=== PATIENT | male | born 1955 | race Caucasian/White ===

== ENCOUNTER 2018-09-05 10:05 | Emergency (ER) | payer OTHER, BC ==
[2018-09-05 10:49] LABS: BASO % 0.5 % (0.0-1.0); EOS # 0.1 10^3/uL (0.0-0.50); EOS % 1.3 % (0.0-3.0); HEMATOCRIT 46.2 % (42.0-52.0); HEMOGLOBIN 15.3 g/dl (13.5-17.5); IMMATURE GRANULOCYTE % 0.2 % (0-3.0); LYMPH # 1.8 10^3/uL (1.5-4.5); LYMPH % 28.6 % (24.0-44.0); MEAN CORPUSCULAR HEMOGLOBIN 31.3 pg (27.0-33.0); MEAN CORPUSCULAR HGB CONC 33.1 g/dl (32.0-36.5); MEAN CORPUSCULAR VOLUME 94.5 fl (80.0-96.0); MONO # 0.7 10^3/uL (0.0-0.8); MONO % 10.3 % (0.0-5.0); NEUTROPHILS # 3.7 10^3/uL (1.8-7.7); NEUTROPHILS % 59.1 % (36.0-66.0); PLATELET COUNT, AUTOMATED 265 10^3/uL (150-450); RED BLOOD COUNT 4.89 10^6/uL (4.30-6.10); RED CELL DISTRIBUTION WIDTH 12.4 % (11.5-14.5); WHITE BLOOD COUNT 6.3 10^3/uL (4.0-10.0)
[2018-09-05 11:27] LABS: ANION GAP 8 MEQ/L (8-16); BLOOD UREA NITROGEN 17 MG/DL (7-18); CALCIUM LEVEL 8.5 MG/DL (8.8-10.2); CARBON DIOXIDE LEVEL 30 MEQ/L (21-32); CHLORIDE LEVEL 108 MEQ/L (98-107); CREATININE FOR GFR 0.74 MG/DL (0.70-1.30); GLOMERULAR FILTRATION RATE > 60.0 (>49); GLUCOSE, FASTING 138 MG/DL (70-100); POTASSIUM SERUM 4.5 MEQ/L (3.5-5.1); SODIUM LEVEL 146 MEQ/L (136-145)
[2018-09-05 11:59] LABS: APPEARANCE, URINE CLEAR (CLEAR); BACTERIA, URINE AUTO 1+ (NEGATIVE); BILIRUBIN, URINE AUTO NEGATIVE (NEGATIVE); BLOOD, URINE BLOOD NEGATIVE (NEGATIVE); COLOR, URINE YELLOW (YELLOW); GLUCOSE, URINE (UA) AUTO NEGATIVE (NEGATIVE); KETONE, URINE AUTO NEGATIVE (NEGATIVE); LEUKOCYTE ESTERASE, URINE AUTO NEGATIVE (NEGATIVE); MUCUS, URINE SMALL (NEGATIVE); NITRITE, URINE AUTO NEGATIVE (NEGATIVE); PROTEIN, URINE AUTO NEGATIVE (NEGATIVE); RBC, URINE AUTO 1 /HPF (0-3); SPECIFIC GRAVITY URINE AUTO 1.019 (1.002-1.035); SQUAMOUS EPITHELIAL CELL UR AU 0 /HPF (0-6); UROBILINOGEN, URINE AUTO 0.2 mg/dL (0.0-2.0); WBC, URINE AUTO 0 /HPF (0-3)
== END 2018-09-05 12:53 | disposition home or self-care (01) ==
LOC: M ED 10:05
DX: S06.0X0A Concussion without loss of consciousness, initial encounter (principal); V09.9XXA Pedestrian injured in unspecified transport accident, initial encounter; Y92.410 Unspecified street and highway as the place of occurrence of the external cause; R03.0 Elevated blood-pressure reading, without diagnosis of hypertension
CPT/HCPCS: 71045

== ENCOUNTER → 2018-09-09 | Outpatient (CLI) | payer BC ==
[2018-09-09 13:02] LABS: BASO % 0.5 % (0.0-1.0); EOS # 0.1 10^3/uL (0.0-0.50); EOS % 1.2 % (0.0-3.0); HEMATOCRIT 48.2 % (42.0-52.0); HEMOGLOBIN 15.9 g/dl (13.5-17.5); IMMATURE GRANULOCYTE % 0.2 % (0-3.0); LYMPH % 31.5 % (24.0-44.0); MEAN CORPUSCULAR HEMOGLOBIN 31.2 pg (27.0-33.0); MEAN CORPUSCULAR VOLUME 94.5 fl (80.0-96.0); MONO # 0.6 10^3/uL (0.0-0.8); MONO % 9.7 % (0.0-5.0); NEUTROPHILS # 3.7 10^3/uL (1.8-7.7); NEUTROPHILS % 56.9 % (36.0-66.0); PLATELET COUNT, AUTOMATED 282 10^3/uL (150-450); RED CELL DISTRIBUTION WIDTH 12.5 % (11.5-14.5); WHITE BLOOD COUNT 6.4 10^3/uL (4.0-10.0)
[2018-09-09 13:27] LABS: ANION GAP 8 MEQ/L (8-16); BLOOD UREA NITROGEN 17 MG/DL (7-18); CALCIUM LEVEL 9.4 MG/DL (8.8-10.2); CARBON DIOXIDE LEVEL 30 MEQ/L (21-32); CHLORIDE LEVEL 104 MEQ/L (98-107); CHOLESTEROL LEVEL 244 MG/DL (<200); CREATININE FOR GFR 0.96 MG/DL (0.70-1.30); GLOMERULAR FILTRATION RATE > 60.0 (>49); GLUCOSE, FASTING 121 MG/DL (70-100); HDL CHOLESTEROL 40 MG/DL (>40); LDL CHOLESTEROL 163 MG/DL (<100); NON-HDL-C 204 MG/DL; POTASSIUM SERUM 4.7 MEQ/L (3.5-5.1); PSA SCREENING 1.82 NG/ML (< 4.0); SODIUM LEVEL 142 MEQ/L (136-145); TRIGLYCERIDES LEVEL 206 MG/DL (<150)
== END ==
LOC: M LAB 12:07
DX: Z12.5 Encounter for screening for malignant neoplasm of prostate (principal); I10 Essential (primary) hypertension
CPT/HCPCS: 84443

== ENCOUNTER → 2018-09-10 | Outpatient (CLI) | payer BC | LOC: M LAB 09:25 | DX: R94.6 Abnormal results of thyroid function studies (principal) | CPT/HCPCS: 84443 ==

== ENCOUNTER → 2018-10-09 | Outpatient (CLI) | payer BC ==
[2018-10-09 11:19] LABS: ANION GAP 6 MEQ/L (8-16); BLOOD UREA NITROGEN 20 MG/DL (7-18); CARBON DIOXIDE LEVEL 31 MEQ/L (21-32); CHLORIDE LEVEL 105 MEQ/L (98-107); CREATININE FOR GFR 1.03 MG/DL (0.70-1.30); GLOMERULAR FILTRATION RATE > 60.0 (>49); GLUCOSE, FASTING 122 MG/DL (70-100); POTASSIUM SERUM 4.6 MEQ/L (3.5-5.1); SODIUM LEVEL 142 MEQ/L (136-145)
[2018-10-09 12:10] LABS: HEPATITIS C VIRUS ABY INDEX 0.1 INDEX (<0.8)
== END ==
LOC: M LAB 09:58
DX: I10 Essential (primary) hypertension (principal); Z11.59 Encounter for screening for other viral diseases
CPT/HCPCS: 86803

== ENCOUNTER 2018-10-20 07:08 | Outpatient (RCR) | payer OTHER ==
[~2018-10-20 07:08] MED LIST: ASPI1TAB PO; METF-414 PO; NEUR100C OR; VICO5TAB OR; VITAMIN D 1.25 MG PO; ZOCO20TA PO; calcium PO; gabapentin PO
== END 2018-11-02 ==
LOC: M OT 07:08
PROVIDERS: ATTEND Physician Assistant
DX: S06.0X0D Concussion without loss of consciousness, subsequent encounter (principal); X58.XXXD Exposure to other specified factors, subsequent encounter; Y92.89 Other specified places as the place of occurrence of the external cause; G44.319 Acute post-traumatic headache, not intractable; H53.9 Unspecified visual disturbance; R41.89 Other symptoms and signs involving cognitive functions and awareness; R46.89 Other symptoms and signs involving appearance and behavior

== ENCOUNTER → 2018-12-14 | Outpatient (CLI) | payer BC ==
[2018-12-14 09:40] LABS: HEMOGLOBIN A1c 7.4 %
[2018-12-14 09:50] LABS: CALCIUM LEVEL 8.9 MG/DL (8.8-10.2); CREATININE FOR GFR 1.36 MG/DL (0.70-1.30); FREE T4 0.75 NG/DL (0.76-1.46); GLOMERULAR FILTRATION RATE 56.3 (>49); POTASSIUM SERUM 4.6 MEQ/L (3.5-5.1); THYROID STIMULATING HORMONE 6.3 uIU/ML (0.358-3.740)
== END ==
LOC: M LAB 08:37
PROVIDERS: ATTEND Physician Assistant
DX: I10 Essential (primary) hypertension (principal); R73.01 Impaired fasting glucose

== ENCOUNTER 2019-01-01 10:59 | Day surgery (SDC) | payer BC ==
[~2019-01-01] VITALS: Ht 172.7 cm; Wt 98.9 kg
[~2019-01-01 10:59] MED LIST changes: +AMIT10TA PO; +LEVO25TA5 PO; +LISI40TA PO; +LR 1,000 ML IV ONE; +MELA5SUB SL; +ROSU5TAB4; +ZOLO25TA PO
[2019-01-01] MEDS ORDERED: LIDOCAINE 2% INJ 100 MG/5 ML SDV (FOR ANES.) As Ordered ONE (12:05)
[2019-01-01] MEDS ORDERED: PROPOFOL 200 MG/20 ML VIAL As Ordered ONE ×3 (12:05→15:48)
[2019-01-01] MEDS ORDERED: ONDANSETRON 4MG/2ML VIAL (J2405) As Ordered ONE (12:06)
[2019-01-01] MEDS ORDERED: dexameTHASONE 4 MG/ML 1ML VIAL (J1100) As Ordered ONE (12:06)
[2019-01-01] MEDS ORDERED: fentaNYL 100 MCG/2 ML INJECTION (J3010) As Ordered ONE (12:12)
[2019-01-01] MEDS ORDERED: MIDAZOLAM INJ 2 MG/2 ML VIAL (J2250) As Ordered ONE (12:12)
[2019-01-01] MEDS ORDERED: BUPIVACAINE LIPOSOME/PF 1.3% 20ML VIAL (13.3MG/ML)(EXPAREL)(C9290 PER1MG) As Ordered ONE (14:35)
[2019-01-01] MEDS ORDERED: LIDOCAINE 1% SDV INJ 30 ML VIAL As Ordered ONE (15:14)
[2019-01-01] MEDS ORDERED: BUPIVACAINE HCL 0.25% 30 ML VIAL As Ordered ONE (15:14)
[2019-01-01] MEDS ORDERED: ePHEDrine SULFATE 25 MG/5 ML(5MG/ML) SYRINGE As Ordered ONE (15:36)
[2019-01-01] MEDS ORDERED: PHENYLephrine HCL 500 MCG/5 ML (100MCG/ML) SYRINGE (J2370) As Ordered ONE (15:36)
[2019-01-01] MEDS ORDERED: PERCOCET 5MG/325MG TAB PO PRN (16:30)
[2019-01-01] MEDS ORDERED: ONDANSETRON 4MG/2ML VIAL (J2405) IV PRN ×3 (16:30→17:15)
[2019-01-01] MEDS ORDERED: LR 1,000 ML IV SCH (16:30)
[2019-01-01] MEDS ORDERED: fentaNYL 100 MCG/2 ML INJECTION (J3010) IV PRN (16:30)
[2019-01-01] MEDS ORDERED: KETOROLAC 30 MG/ML VIAL (J1885) As Ordered ONE (17:09)
[2019-01-01] MEDS ORDERED: KETOROLAC 30 MG/ML VIAL (J1885) IV PRN (17:15)
[2019-01-01] MEDS ORDERED: NORCO, ANEXSIA 5/325MG TABLET (HYDROcodone/ACETAMINOPHEN) PO PRN ×2 (17:15)
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
[2019-01-01 20:59] VITALS: BP 131/73
== END 2019-01-01 20:59 | disposition home or self-care (01) ==
LOC: M SDC 10:59
PROVIDERS: ATTEND Surgery
DX: L05.91 Pilonidal cyst without abscess (principal); I10 Essential (primary) hypertension; E03.9 Hypothyroidism, unspecified; E11.9 Type 2 diabetes mellitus without complications; E78.00 Pure hypercholesterolemia, unspecified; F41.9 Anxiety disorder, unspecified; F32.9 Major depressive disorder, single episode, unspecified; Z85.068 Personal history of other malignant neoplasm of small intestine; Z79.899 Other long term (current) drug therapy
CPT/HCPCS: 11770; 88304; C9290; J0690; J1100; J1885; J2250; J2370; J2405; J3010

== ENCOUNTER → 2019-02-11 | Outpatient (CLI) | payer BC ==
[~2019-02-11] MED LIST changes: -ASPI1TAB PO; +ASPI81TA26 PO; -LR 1,000 ML IV ONE
[2019-02-11 10:20] LABS: FREE T4 0.96 NG/DL (0.76-1.46); THYROID STIMULATING HORMONE 3.8 uIU/ML (0.358-3.740)
== END ==
LOC: M LAB 09:17
PROVIDERS: ATTEND Physician Assistant
DX: E03.9 Hypothyroidism, unspecified (principal)

== ENCOUNTER → 2019-02-16 | Outpatient (CLI) | payer BC ==
[2019-02-16 08:17] LABS: HEMOGLOBIN A1c 7.2 %
[2019-02-16 08:27] LABS: ALBUMIN 3.7 GM/DL (3.2-5.2); ALT/SGPT 25 U/L (12-78); BILIRUBIN,TOTAL 0.7 MG/DL (0.2-1.0); BLOOD UREA NITROGEN 16 MG/DL (7-18); CALCIUM LEVEL 8.9 MG/DL (8.8-10.2); CARBON DIOXIDE LEVEL 33 MEQ/L (21-32); CHLORIDE LEVEL 105 MEQ/L (98-107); CHOLESTEROL LEVEL 191 MG/DL (<200); CHOLESTEROL RISK RATIO 4.441 (<5); FREE T4 0.95 NG/DL (0.76-1.46); GLOMERULAR FILTRATION RATE > 60.0 (>49); GLUCOSE, FASTING 127 MG/DL (70-100); HDL CHOLESTEROL 43 MG/DL (>40); LDL CHOLESTEROL 98 MG/DL (<100); NON-HDL-C 148 MG/DL; POTASSIUM SERUM 4.4 MEQ/L (3.5-5.1); SODIUM LEVEL 142 MEQ/L (136-145); TOTAL PROTEIN 6.9 GM/DL (6.4-8.2); TRIGLYCERIDES LEVEL 251 MG/DL (<150)
[2019-02-16 12:27] LABS: MALB URINE SIEMENS 14.6 MG/L; MAU/CREAT RATIO 8.4 MCG/MG (0.0-30.0)
== END ==
LOC: M LAB 06:47
PROVIDERS: ATTEND Physician Assistant
DX: R73.01 Impaired fasting glucose (principal)

== ENCOUNTER → 2020-12-16 | Outpatient (CLI) | payer BC ==
[~2020-12-16] MED LIST changes: +D31000TA2 PO; +DOXA2TAB3 PO; -LISI40TA PO; +LISI40TA4 PO; +LOPI600T; +METF-838; -ROSU5TAB4; +ROSU5TAB5
== END ==
LOC: M LABSMTC 08:55
PROVIDERS: ATTEND Anesthesiology
DX: Z01.812 Encounter for preprocedural laboratory examination (principal); Z20.822 Contact with and (suspected) exposure to COVID-19

== ENCOUNTER 2020-12-21 07:01 | Day surgery (SDC) | payer MEDICARE ==
[~2020-12-21] VITALS: Ht 170.2 cm; Wt 102.7 kg
[~2020-12-21 07:01] MED LIST changes: +BSS IRR 500ML/OMIDRIA 4ML IRR BAG (OR ONLY) As Ordered ONE; +CEFUROXIME 1MG/0.1ML INTRACAMERAL INJ As Ordered ONE; +DUOVISC (0.50ML VISCOAT/0.55ML PROVISC) OPHTH KIT As Ordered ONE; +OFLOXACIN 0.3 % (OCUFLOX) OPTH SOL 5ML OS ONE; +PHENYLEPHRINE 2.5% OPHTH SOL 2ML OS ONE; +POVIDONE-IODINE 5% OPHTH PREP SOL 30ML As Ordered ONE; +PROPARACAINE 0.5% OPHTH SOL 15ML OS ONE; +TROPICAMIDE 1% OPHTH SOLN 2ML OS ONE
--- OUTSIDE RECORDS SUMMARY | 2020-12-21 07:06 | CCD | Continuity of Care Document ---
Author Author [facility] Organization Unknown Address [address] [place] [address] Phone [phone] Care Team Providers Care Station Cook Name Role Phone Tonia Cao AUTM [phone] Problems Active Problems Provider Date Pure hypercholesterolemia Ari Coello MD Onset: 019 Essential hypertension Ari Coello MD Onset: 04/27/2019 Type II diabetes mellitus uncontrolled ANTONIA Piña P [employer] ARCHITECT Onset: 06/20/2020 Hypothyroidism ANTONIA Piña PNP Onset: 0 Pure hyperglyceridemia ANTONIA Piña, RIP Onset: 2019 Moderate recurrent major depression ANTONIA Piña PNP Onset: 06/20/2020 Anxiety state ANTONIA Piña PNP Onset: 0 Taking medication ANTONIA Piña PNP Onset: 0 Pilonidal cyst without abscess ANTONIA Piña PNP Onset : 06/20/2020 Family history of prostate cancer [facility] Onset: 06/20/2020 Pilonidal cyst with abscess Ari Coello MD Onset: 06/20 History of polyp of colon ANTONIA Piña PNP Onset: Insomnia ANTONIA Piña PNP Onset: 0 Social History Type Date Description Comments Sex Unknown Tobacco Use Start: Unknown Never Smoked Cigarettes Tobacco Use Start: Unknown Never Smoked Cigars Tobacco Use Start: Unknown Never Smoked A Pipe Smoking Status Reviewed: 10/03/20 Never Smoked A Pipe Tobacco Use Start: Unknown Never Used Smokeless Tobacco ETOH Use Currently consumes alcohol 1-2 t imes a week Tobacco Use Start: Unknown Patient has never smoked Recreational Drug Use Denies Drug Use Allergies, Adverse Reactions, Alerts Active Allergies Reaction Severity Comments Date NKDA 03/24/2019 [employer]KE[employer] 04/27/2019 NKFA 04/27/2019 Medications Active Medications SIG Qnty Indications Ordering Provide r Date Doxazosin Mesylate 2mg Tablets take 1 tablet by mouth every am for blood pressure 90tabs ANTONIA Piña, PNP 06/20/2020 Metformin HCL ER 500mg Tablets ER 24HR 1 by mouth twice a day 180tabs E11.65 ANTONIA Piña, PNP Cpap Mask And Supplies Please set patient up with n otoniel mask of his choice and chin strap to use with Auto cpap every night dx: g47.33 1units G47. 33 ANTONIA Piña, PNP 12/22/2019 Levothyroxine Sodium 88mcg Tablets take 1 tablet by mouth every day 90tabs ANTONIA Piña, PN P 12/22/2019 Gemfibrozil 600mg Tablets take 1 tablet by mouth daily 90tabs E78.1 ANOTNIA Piña, PNP 12/22/19 20 Auto Cpap set up 5-20cm, mask of patie nt's choice, heated humidifier and necessary supplies dx: g47.33 (marras) 1units ANTONIA Norman, PNP 06/01/2019 Rosuvastatin Calcium 5mg Tablets 1 by mouth every day 90tabs ANTONIA Piña, PNP 00 Systane 0.4-0.3% Solution 1 drop right eye twice a day Unknown Immunizations CPT Code Status Date Vaccine Lot # [id number] Given 08/10/2020 Influenza (>= 6 Months) P.F. Vaccine [id number] Vital Signs Date Vital Result Comment 09/25/2020 9:29am BP Systolic 112 mmHg BP Diastolic 68 mmHg Heart Rate 78 /min Body Temperature 96.6 F Respiratory Rate 18 /min O2 % BldC Oximetry 96 % Weight 217.38 lb Weight 98.601 kg Height 67 inches 5'7" BMI (Body Mass Index) 34.0 kg/m2 BSA (Body Surface Area) 2.10 m2 08/10/2020 10:20am Height 67 inches 5'7" Results Test Acquired Date Facility Test Result H/L Range Note Laboratory test finding 12/18/2020 [facility] TSH Highly Sensitive <pending> Hgba1c <pending> Magnesium Serum <pending> Vitamin D (25-Hydroxy) <pending> CBC W/Automated Diff 09/20/2020 [facility] CBC W/Automated Diff (SEE NOTE) 1, 2 WBC 6.0 10^3/uL 4.2 - 11.0 RBC 5.16 10^6/uL 4.50 - 6.30 Hemoglobin 15.9 g/dL 14.0 - 16.0 Hematocrit 48.6 % 41.0 - 51.0 MCV 94.2 fL High 80.0 - 94.0 MCH 30.8 pg 27.0 - 34.0 MCHC 32.7 g/dL 31.0 - 36.0 RDW 12.1 % 11.5 - 14.8 Platelets 272 10^3/uL 150 - 450 MPV 10.2 fL 7.4 - 10.4 Neut 49.1 % 37.0 - 80.0 Lymph 37.0 % 25.0 - 40.0 [place] 10.3 % High 3.0 - 8.0 Eos 2.5 % 0.0 - 7.0 Baso 0.8 % 0.0 - 2.0 %Ig 0.3 % High 0.0 - 0.0 %NRBC 0.0 % 0.0 - 0.0 #Neut 2.96 10^3/uL 2.00 - 6.90 #Lymph 2.23 10^3/uL 0.60 - 3.40 #[place] 0.62 10^3/uL 0.00 - 0.90 #Eos 0.15 10^3/uL 0.00 - 0.70 #Baso 0.05 10^3/uL 0.00 - 0.20 #Ig 0.02 10^3/uL 0.00 - 0.10 #NRBC 0.00 10^3/uL 0.00 - 0.00 Manual Diff NOT INDICATED RBC Morph NOT INDICATED Comprehensive Metabolic Panel 09/20/2020 [facility] Comprehensive Metabo (SEE NOTE) 3 Sodium 142 mEq/L 134 - 153 Potassium 4.5 mEq/L 3.6 - 5.0 Chloride 104 mEq/L 98 - 107 Co2 32 mEq/L High 22 - 30 Glucose 129 mg/dL High 65 - 110 BUN 15 mg/dL 7 - 21 Creatinine 1.1 mg/dL 0.7 - 1.5 BUN/Creat 14 8 - 27 Total Protein 6.6 g/dL 6.3 - 8.2 Albumin 4.4 g/dL 3.9 - 5.0 Globulin 2.2 GM/DL Low 2.4 - 3.2 A/G Ratio 2.0 0.8 - 2.0 Calcium 9.8 mg/dL 8.4 - 10.2 Total Bili <0.7 mg/dL 0.2 - 1.3 Alkaline Phos 56 U/L 38 - 126 Sgot/Ast 17 U/L 5 - 40 SGPT/Alt 17 U/L 7 - 56 Anion Gap 6.0 mmol/L Low 8.0 - 16.0 Age 65 yrs Non-Aa GFR >60 mL/min Afr Amer GFR >60 mL/min 4 Cve Panel 09/20/2020 [facility] Cve Panel (SEE NOTE) 5 Cholesterol 175 mg/dL 131 - 200 Triglycerides 176 mg/dL High 35 - 160 HDL 41 mg/dL 29 - 86 LDL 103 mg/dL 65 - 175 Risk Factor 4.3 3.4 - 4.9 LDL/HDL 2.51 1.00 - 3.55 6 Laboratory test finding 09/20/2020 [facility] TSH Highly Sensitive 0.77 uIU/mL 0.47 - 5.01 Hgba1c 7.2 % High 4.4 - 6.1 7 Magnesium Serum 1.8 mg/dL 1.7 - 2.2 Laboratory test finding 09/20/2020 [facility] Vitamin D (25-Hydroxy) 35 NG/ML 8 PSA - Diagnostic 2.33 ng/mL 0.00 - 4.00 9 Laboratory test finding 07/21/2020 [facility] BUN 17 mg/dL 7 - 21 Creatinine Serum 07/21/2020 [facility] Creatinine 1.1 mg/dL 0.7 - 1.5 Age 65 yrs Non-Aa GFR >60 mL/min Afr Amer GFR >60 mL/min 10 1 Is patient fasting? Y 2 COMPLETE BLOOD COUNT 3 COMPREHENSIVE METABOLIC PANE L 4 Male GFR Interprentation 20-49 yrs >60 mL/min Normal 50-59 yrs >56 mL/min Normal 60-69 yrs >49 mL/min Normal 70-79yrs >42 mL/min Normal 80 and above >35 mL/min Normal Female GFR Interpretation 20-39 yrs >60 mL/min Normal 40-49 yrs >58 mL/min Normal 50-59 yrs >51 mL/min Normal 60-69 yrs >45 mL/min Normal 70-79 yrs >39 mL/min Normal 80 and above >32 mL/min Normal 5 LIPID PANEL 6 CVE RISK CHOL/HDL LDL/HDL MEN: 1/2 AVERAGE 3.43 1.00 AVERAGE 4.97 3.55 2X AVERAGE 9.55 6.25 3X AVERAGE 23.99 7.99 WOMEN: 1/2 AVERAGE 3.27 1.47 AVERAGE 4.44 3.22 2X AVERAGE 7.05 5.03 3X AVERAGE 11.04 6.14 7 {A1] {HB] 8 VITAMIN-D(25HYDROXY) Deficiency: <=20 ng/ml Insufficiency: 21-29 ng/ml Preferred level: => 30 ng/ml 9 \\BLDo\\PSA INTERPRETATION\\BLD x\\ The PSA assay should not be used alone for a screening test or diagnosis for presence or absence of malignant disease. Predictions of disease recurrence should not be based solely on values obtained from serial patient serum values. The PSA result was determined by "[employer]", on the Joel GIUSEPPE 6000. Values obtained with different assay methods or kits cannot be used interchangeably. 10 Male GFR Interprentation 20-49 yrs >60 mL/min Normal 50-59 yrs >56 mL/min Normal 60-69 yrs >49 mL/min Normal 70-79yrs >42 mL/min Normal 80 and above >35 mL/min Normal Female GFR Interpretation 20-39 yrs >60 mL/min Normal 40-49 yrs >58 mL/min Normal 50-59 yrs >51 mL/min Normal 60-69 yrs >45 mL/min Normal 70-79 yrs >39 mL/min Normal 80 and above >32 mL/min Normal Procedures Date Code Description Status 09/25/2020 00025 Admin Patient Focused Health Ris k Assessment Instrument Completed 06/20/2020 62043 Brief Emotional/Beha v Assessment W/ Scoring Doc Per Standard Inst Completed Medical Devices Description No Information Available Encounters Description No Information Available Assessments Date Code Description Provider 12/18/2020 E11.65 Type 2 diabetes mellitus with hy perglycemia [facility] 12/18/2020 E03.9 Hypothyroidism, unspecified [facility] 12/18/2020 Z79.899 Other bed bug exterminator (current) drug t herapy [facility] 12/18/2020 E78.1 Pure hyperglyceridemia [facility] 12/18/2020 R79.89 Other specified abnormal finding s of blood chemistry [facility] 10/03/2020 E11.42 Type 2 diabetes mellitus with di abetic polyneuropathy Miki Bagley DPM 09/25/2020 Z00.01 Encounter for jose l adult medical examination with abnormal findings ANTONIA Piña, PNP 09/25/2020 R20.1 Hypoesthesia of skin ANTONIA Piña, PNP 09/25/2020 H26.9 Unspecified cataract ANTONIA Piña, PNP 09/25/2020 E11.65 Type 2 diabetes mellitus with hy perglycemia TERRELL Piña, PNP 09/25/2020 E78.1 Pure hyperglyceridemia Tonia williamson, ANTONIA, PNP 09/25/2020 I10 Essential (primary) hypertension ANTONIA Piña, PNP 09/25/2020 E03.9 Hypothyroidism, unspecified ANTONIA Piña, PNP 09/25/2020 E66.01 Morbid (severe) obesity due to e xcess calories ANTONIA Piña, PNP 09/25/2020 E55.9 Vitamin D deficiency, unspecifie d ANTONIA Piña, PNP 09/25/2020 Z79.899 Other prison (current) drug t herapy ANTONIA Piña, PNP 09/25/2020 Z68.34 Body mass index [BMI] 34.0-34.9, adult ANTONIA Piña, PNP 09/20/2020 E11.65 Type 2 diabetes mellitus with hy perglycemia [facility] 09/20/2020 E03.9 [facility], [facility] 09/20/2020 Z79.899 Other prison (current) drug t herapy [facility] 09/20/2020 E78.1 Pure hyperglyceridemia [place] 09/20/2020 Z80.42 Family history of malignant neop lasm of prostate [facility] 09/20/2020 R79.89 Other specified abnormal finding s of blood chemistry [facility] 07/21/2020 E11.65 Type 2 diabetes mellitus with hy perglycemia [facility] 07/21/2020 R79.89 Other specified abnormal finding s of blood chemistry [facility] 06/20/2020 E11.65 Type 2 diabetes mellitus with hy perglycemia TERRELL Piña, PNP 06/20/2020 E03.9 Hypothyroidism, unspecified ANTONIA Piña, PNP 06/20/2020 I10 Essential (primary) hypertension ANTONIA Piña, PNP 06/20/2020 E78.1 Pure hyperglyceridemia ANTONIA Norman, PNP 06/20/2020 R79.89 Other specified abnormal finding s of blood chemistry ANTONIA Piña, PNP 06/20/2020 E66.01 Morbid (severe) obesity due to e xcess calories ANTONIA Piña, RIP 06/20/2020 Z68.33 Body mass index (BMI) 33.0-33.9, adult ANTONIA Piña, RIP 06/20/2020 Z79.899 Other bed bug exterminator (current) drug t herapy ANTONIA Piña, RIP Plan of Treatment Future Appointment(s):* 12/27/2020 8:00 am - ANTONIA Piña PNP at [facility] 10/03/2020 - Miki Bagley DPM* E11.42 Type 2 diabetes mellitus with diabetic polyneuropathy* Follow up:* Patient was advised to follow up yearly to monitor for progression of his symptoms but may follow up more frequently for routine nail care if he desires it. * Recommendations:* 1. The patient was seen and evaluated. 2. He has numbness primarily in the distal and plantar aspect of his toe to the ball of his foot. No findings on exam concerning for impingement. He denies any chronic lower back problems or alcohol abuse. He does have diabetes and has hypothyroidism. Most likely cause of his numbness is diabetes. I educated him on the importance of daily foot exams and visually inspecting his toes for ingrown and pressure areas and foreign bodies. We discussed that because of the numbness in his toes, we can began doing regular nail care. He will think about this but does not need this today. We also discussed the possibility of diabetic shoes and he is not interested in it at this time. We discussed the importance of proper fitting shoe gear. He was advised to follow up yearly to monitor for progression of his symptoms but may follow up more frequently for routine nail care if he desires it. 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 He is requesting referral to your office for evaluation. Sent [phone] [address] [phone] Estephania Goel, CEDRICK pc Please see this 65 yo man wh o c/o numbness feet. He also needs diabetic foot exam. He has Hx Type 2 DM, last A1C 09/2020 was 7.2 Closed 10/03/[address] [place] [id number] [phone]
--- OUTSIDE RECORDS SUMMARY | 2020-12-21 07:06 | CCD | Summary of Care ---
Author Author [facility] Organization [facility] Address Unknown Phone Unavailable Care Team Providers Care Pillowcase Cleaner Name Role Phone Tonia Cao PRINTER SLOTTER FEEDER PCP Reason for Referral * Physical Therapy (Routine) Referred By Contact Referred To Contact Status Reason Specialty Diagnoses / Procedures Jeff Conley MD [address] [place] [address] Email: [email or web address] Diagnoses Right rotator cuff tear arthropathy P rocedures Physical Therapy Reason for Visit * Reason Comments New Patient Right shoulder pain Encounter Details Care Team Description Date Type Department Jeff Conley MD [address] [place] [phone] Right rotator cuff tear arthropathy (aKrlee bharathi Dx) 10/19/2020 Office Visit [email or web address] Orthopedics , [facility] [address] [place] [address] [place] [phone] Allergies No Known Allergiesdocumented as of this encounter (statuses as of 10/19/2020) Medications End Date Status Medication Sig Dispensed Refills Start Date Active rosuvastatin (CRESTOR) 5 Take by mouth 2 10/12 MG tablet daily 8 Active Levothyroxine Sodium 88 Take by mouth 0 MCG Oral Tablet daily 0 (SYNTHROID) Active metFORMIN HCl ER 500 MG TK 1 T PO BID 0 Oral Tablet Extended 0 Release 24 Hour (GLUCOPHAGE-XR) Active Ibuprofen 600 MG Oral Take 600 mg 0 10/11/20 2 Tablet (MOTRIN) by mouth 0 every 8 (eight) hours as needed Active Gemfibrozil 600 MG Oral Take 600 mg 0 Tablet (LOPID) by mouth 0 daily Active Doxazosin Mesylate 2 MG TK 1 T PO QD 0 Oral Tablet (CARDURA) FOR BLOOD 0 PRESSURE 10/19/2020 Discontinued lisinopril TK 1 T PO 1 (PRINIVIL,ZESTRIL) 40 MG ONCE A DAY. 8 tablet 10/19/2020 Discontinued Melatonin 5 MG CAPS Take 5 mg by 0 mouth daily 10/19/2020 Discontinued amitriptyline (ELAVIL) 10 TAKE 1 TABLET 30 tablet 4 MG tablet BY MOUTH 9 EVERY NIGHT 10/19/2020 Discontinued levothyroxine (SYNTHROID, Take 50 mcg 0 LEVOTHROID) 50 MCG tablet by mouth Daily 10/19/2020 Discontinued Njpqmhtvqar-Cafstjcr-Xwlv Apply 1 % to 0 fenac 1-0.5-0.075 % SOLN eye Four times daily 10/19/2020 Discontinued gentamicin (GARAMYCIN) Place 1 drop 0 0.3 % ophthalmic solution into both eyes every 4 (four) hours 10/19/2020 Discontinued sertraline (ZOLOFT) 50 MG 0 tablet 9 documented as of this encounter (statuses as of 10/19/2020) Active Problems Problem Noted Date Primary osteoarthritis of left knee 01/04/2019 Right sided weakness 01/04/2019 documented as of this encounter (statuses as of 10/19/2020) Social History Date Tobacco Use Types Packs/Day Years Used Never Smoker Smokeless Tobacco: Never Used Drinks/Week oz/Week Comments Alcohol Use Yes Sex Assigned at Date Recorded Not on file Date Recorded COVID-19 Exposure Response 10/19/2020 12:53 PM EST In the last month, have you been in contact with No / Unsure someone who was confirmed or suspected to have Coronavirus / COVID-19? documented as of this encounter Last Filed Vital Signs Reading Time Taken Comments Vital Sign - - Blood Pressure - - Pulse 36 C (96.8 F) 10/19/2020 1:39 PM EST Temperature - - Respiratory Rate - - Oxygen Saturation - - Inhaled Oxygen Concentration 97.5 kg (215 lb) 10/19/2020 1:39 PM EST Weight 172.7 cm (5' 8") 10/19/2020 1:39 PM EST Height 32.69 10/19/2020 1:39 PM EST Body Mass Index documented in this encounter Progress Notes * Jeff Conley MD - 10/19/2020 1:00 PM EST CC: Right shoulder pain History: Adrián Coombs is a 65 y.o. patient who presents for evaluation of right shoulder pain has been going on for 10 to 15 years. He had no new injury. Arou nd that time he said he was diagnosed with a "detached tendon ". He said he was told he should have shoulder replacement surgery however he did not want to go forward with that at the time. He has been self treating himself throughout the time since this. He been takin g ibuprofen and modifying his activities to help with the pain. Overhead liftin g or any type of heavy lifting increases pain and he is try to avoid this. He h as not done any formal physical therapy for this however. He is right-hand dominant and retired. He does not do anything athletic but he does garden significant amount. He has hypertension hyperlipidemia and diabetes for which he takes Metformin for. His last A1c was 7.2. He lives up near [place]. Past Medical History: Please see Medical History Form - reviewed and scanned in to system. Past Medical History: Diagnosis Date Cancer 2010 Colon cancer Hyperlipidemia Hypertension Low back pain Current Outpatient Medications: amitriptyline (ELAVIL) 10 MG tablet, TAKE 1 TABLET BY MOUTH EVERY NIGHT, Disp: 30 tablet, Rfl: 4 gentamicin (GARAMYCIN) 0.3 % ophthalmic solution, Place 1 drop into both eyes every 4 (four) hours, Disp: , Rfl: levothyroxine (SYNTHROID, LEVOTHROID) 50 MCG tablet, Take 50 mcg by mout h Daily, Disp: , Rfl: lisinopril (PRINIVIL,ZESTRIL) 40 MG tablet, TK 1 T PO ONCE A DAY., Disp: , Rfl: 1 Melatonin 5 MG CAPS, Take 5 mg by mouth daily, Disp: , Rfl: Avchavcrmcg-Rildyfpj-Etygabmsb 1-0.5-0.075 % SOLN, Apply 1 % to eye Four times daily, Disp: , Rfl: rosuvastatin (CRESTOR) 5 MG tablet, Take by mouth daily, Disp: , Rfl: 2 sertraline (ZOLOFT) 50 MG tablet, , Disp: , Rfl: Patient's currently listed allergies are: Patient has no known allergies. Past Surgical History: Please see Medical History Form - reviewed and scanned i nto system. Past Surgical History: Procedure Laterality Date COLECTOMY/COLON RESECTION CYST REMOVAL TONSILLECTOMY TUMOR EXCISION Review of Systems: Comprehensive review of systems completed by patient and revi ewed by me and scanned into the system. Negative for chest pain, shortness of b reath, nausea and vomiting. Pertinent positive findings include nothing other th an mentioned in the HPI/PMH. Physical exam: Patient is alert & oriented times three, in no significant distress. Mood is appropriate. Well developed. Demonstrates good judgement and insight. Normocephalic, atraumatic. Extraocular movements in tact. Mucous Membranes moist. Non labored respirations. Skin is intact and supple throughout. Grossly normal sensation throughout. Vitals: 10/19/20 1339 Temp: 36 C (96.8 F) Right- shoulder: Inspection: skin intact, cool/dry, no lesions Otherwise, no gross deformity or other sign of trauma Scar(s): - Wound(s): - Swelling/Mass: - Palpation: AC Joint: - LHBT: - Corocoid: - Scap spine: - Trapezius: - Clavicle: - ROM (Active/Passive): R L Abd: 170/170 170/170 FF: 170/170 170/170 ER: 40/40 60/60 IR: T10 T10 Strength: R / pain L / pain Abd: 4+ 5 FF: 5 5 ER: 4+/+ 5 Bellypress: 5 5 -Spurling No pain with neck range of motion + velasquez impingement - empty can - periscapular atrophy - Yergesons - Graff's Able to flex/ext/abd/add all digits Sensation to light touch present / symmetric bilateral C5-T1 +axillary nerve sensation lateral shoulder 2+ radial pulse, temperature warm, refill normal Radiographs: X-rays taken today show slightly high riding humeral head with cruz ohumeral and acromioclavicular degenerative change Assessment/Plan: Patient is a 65 y.o. male with likely right rotator cuff tear a rthropathy We discussed conservative treatment today including continue with nonsteroidal a nti-inflammatories as needed, activity modifications and physical therapy. He i s going to go forward with all of those. Physical therapy will focus on deltoid strengthening and writing shoulder unit exercises. We discussed corticosteroid injection could also be an option down the road. He understands this these are unsuccessful the next thing I would like to do wou ld be to get an MRI of his shoulder to assess the extent of his rotator cuff inj ury. Based on his history he had a significant rotator cuff tear for at least 1 0 to 15 years and was recommended to have reverse shoulder replacement at that t bernice. It is unlikely but I would recommend anything different. Follow Up and xrays: As needed No orders of the defined types were placed in this encounter. At the conclusion of the encounter, questions were answered to satisfaction. Th e treatment plan was reviewed, including prognosis. The patient was comfortable with the plan. cc: Tonia Cao, PRINTER SLOTTER FEEDER This document was dictated using [employer] Speaking Software. A reasonab le attempt at proof reading has been made to minimize errors. Please call our o ffice if you have any questions. Thank you. documented in this encounter Plan of Treatment Health Maintenance Due Date Last Done Comments Hepatitis C Screening (B. 1955 [id number]) MMR Vaccines (1 of - [birth year]04/1956 Standard series) Varicella Vaccines (1 of 02/04/1956 2 - 2-dose childhood series) DTaP,Tdap,and Td Vaccines 1962 (1 - Tdap) Colon Cancer Screening 10 2005 yrs Zoster Vaccines (1 of 2) 2005 Pneumococcal Vaccine: 65+ 02/04/2020 Years (1 of 1 - PPSV23) Influenza Vaccine 08/03/2020 HIB Vaccines Aged Out No longer eligible based on patient's age to complete this topic Hepatitis A Vaccines Aged Out No longer eligibl e based on patient's age to complete this topic Hepatitis B Vaccines Aged Out No longer eligibl e based on patient's age to complete this topic IPV Vaccines Aged Out No longer eligible based on patient's age to complete this topic Pneumococcal Vaccine: Aged Out No longer eligib le based on patient's age to Pediatrics (0 to 5 Years) complete this topic and At-Risk Patients (6 to 64 Years) documented as of this encounter Results Not on filedocumented in this encounter Visit Diagnoses Diagnosis Right rotator cuff tear arthropathy - P rimary documented in this encounter
--- OUTSIDE RECORDS SUMMARY | 2020-12-21 07:07 | CCD ---
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 Onset: 06/20/2020 Hypothyroidism ANTONIA Piña PNP Onset: 0 Pure hyperglyceridemia ANTONIA Piña, PNP Onset: 2019 Moderate recurrent major depression ANTONIA Piña, PNP Onset: 06/20/2020 Anxiety state ANTONIA Piña, PNP Onset: 0 Taking medication ANTONIA Piña PNP Onset: 0 Pilonidal cyst without abscess ANTONIA Piña PNP Onset : 06/20/2020 Family history of prostate cancer [facility] Onset: 06/20/2020 Pilonidal cyst with abscess Ari Coello MD Onset: 06/20 History of polyp of colon ANTONIA Piña PNP Onset: Insomnia ANTONIA Piña PNP Onset: 0 Social History Type Date Description Comments Sex Unknown Tobacco Use Start: Unknown Never Smoked Cigarettes Tobacco Use Start: Unknown Never Smoked Cigars Tobacco Use Start: Unknown Never Smoked A Pipe Tobacco Use Start: [...] Supplies Please set patient up with n otoneil mask of his choice and chin strap to use with Auto cpap every night dx: g47.33 1units G47. 33 ANTONIA Piña, PNP 12/22/2019 Levothyroxine Sodium 88mcg Tablets take 1 tablet by mouth every day 90tabs ANTONIA Piña, PN P 12/22/2019 Gemfibrozil 600mg Tablets take 1 tablet by mouth daily 90tabs E78.1 ANTONIA Piña, PNP 12/22/19 20 Auto Cpap set up 5-20cm, mask of patie nt's choice, heated humidifier and necessary supplies dx: g47.33 (marras) 1units ANTONIA Norman, PNP 06/01/2019 Rosuvastatin Calcium 5mg Tablets 1 by mouth every day 90tabs NATONIA Piña, PNP 00 Systane 0.4-0.3% Solution 1 drop right eye twice a day Unknown Immunizations CPT Code Status Date Vaccine Lot # [id number] Given 08/10/2020 Influenza (>= 6 Months) P.F. [...] Date Facility Test Result H/L Range Note CBC W/Automated Diff 09/20/2020 [facility] CBC W/Automated Diff (SEE NOTE) 1, 2 [...] 80.0 Lymph 37.0 % 25.0 - 40.0 [place] 10.3 % High 3.0 - 8.0 Eos 2.5 % 0.0 - 7.0 Baso 0.8 % 0.0 - 2.0 %Ig 0.3 % High 0.0 - 0.0 %NRBC 0.0 % 0.0 - 0.0 #Neut 2.96 10^3/uL 2.00 - 6.90 #Lymph 2.23 10^3/uL 0.60 - 3.40 #[place] 0.62 10^3/uL 0.00 - 0.90 #Eos 0.15 10^3/uL 0.00 - 0.70 #Baso 0.05 10^3/uL 0.00 - 0.20 #Ig 0.02 10^3/uL 0.00 - 0.10 #NRBC 0.00 10^3/uL 0.00 - 0.00 Manual Diff NOT INDICATED RBC Morph NOT INDICATED Comprehensive [facility] 09[facility]20[facility]2020 [facility]abo (SEE NOTE) 3 Sodium 142 [...] GFR >60 mL/min 4 Cve Panel 09/20/2020 [facility] Cve Panel (SEE NOTE) 5 Cholesterol 175 mg/dL 131 - 200 Triglycerides 176 mg/dL High 35 - 160 HDL 41 mg/dL 29 - 86 LDL 103 mg/dL 65 - 175 Risk Factor 4.3 3.4 - 4.9 LDL/HDL 2.51 1.00 - 3.55 6 Laboratory test finding 09/20/2020 [facility] TSH Highly Sensitive 0.77 uIU/mL 0.47 - 5.01 Hgba1c 7.2 % High 4.4 - 6.1 7 Magnesium Serum 1.8 mg/dL 1.7 - 2.2 Laboratory test finding 09/20/2020 [facility] Vitamin D (25-Hydroxy) 35 NG/ML 8 PSA - Diagnostic 2.33 ng/mL 0.00 - 4.00 9 Laboratory test finding 07/21/2020 [facility] BUN 17 mg/dL 7 - 21 Creatinine Serum 07/21/2020 [facility] Creatinine 1.1 mg/dL 0.7 - 1.5 Age 65 yrs Non-Aa GFR >60 mL/min Afr Amer GFR >60 mL/min 10 CBC W/Automated Diff 06/13/2020 [facility] CBC W/Automated Diff (SEE NOTE) 11, 12 WBC 5.9 10^3/uL 4.2 - 11.0 RBC 4.38 10^6/uL Low 4.50 - 6.30 Hemoglobin 13.4 g/dL Low 14.0 - 16.0 Hematocrit 42.3 % 41.0 - 51.0 MCV 96.6 fL High 80.0 - 94.0 MCH 30.6 pg 27.0 - 34.0 MCHC 31.7 g/dL 31.0 - 36.0 RDW 12.9 % 11.5 - 14.8 Platelets 285 10^3/uL 150 - 450 MPV 10.8 fL High 7.4 - 10.4 Neut 50.7 % 37.0 - 80.0 Lymph 33.3 % 25.0 - 40.0 [place] 13.0 % High 3.0 - 8.0 Eos 2.2 % 0.0 - 7.0 Baso 0.5 % 0.0 - 2.0 %Ig 0.3 % High 0.0 - 0.0 %NRBC 0.0 % 0.0 - 0.0 #Neut 2.99 10^3/uL 2.00 - 6.90 #Lymph 1.97 10^3/uL 0.60 - 3.40 #[place] 0.77 10^3/uL 0.00 - 0.90 #Eos 0.13 10^3/uL 0.00 - 0.70 #Baso 0.03 10^3/uL 0.00 - 0.20 #Ig 0.02 10^3/uL 0.00 - 0.10 #NRBC 0.00 10^3/uL 0.00 - 0.00 Manual Diff NOT INDICATED RBC Morph NOT INDICATED Comprehensive Metabolic Panel 06/13/2020 [facility] Comprehensive Metabo (SEE NOTE) 13 Sodium 139 mEq/L 134 - 153 Potassium 4.8 mEq/L 3.6 - 5.0 Chloride 102 mEq/L 98 - 107 Co2 24 mEq/L 22 - 30 Glucose 122 mg/dL High 65 - 110 BUN 45 mg/dL High 7 - 21 Creatinine 2.2 mg/dL High 0.7 - 1.5 BUN/Creat 20 8 - 27 Total Protein 7.3 g/dL 6.3 - 8.2 Albumin 4.8 g/dL 3.9 - 5.0 Globulin 2.5 GM/DL 2.4 - 3.2 A/G Ratio 1.9 0.8 - 2.0 Calcium 10.0 mg/dL 8.4 - 10.2 Total Bili <0.7 mg/dL 0.2 - 1.3 Alkaline Phos 57 U/L 38 - 126 Sgot/Ast 23 U/L 5 - 40 SGPT/Alt 19 U/L 7 - 56 Anion Gap 13.0 mmol/L 8.0 - 16.0 Age 65 yrs Non-Aa GFR 32 mL/min Afr Amer GFR 39 mL/min 14 Cve Panel 06/13/2020 [facility] Cve Panel (SEE NOTE) 15 Cholesterol 158 mg/dL 131 - 200 Triglycerides 107 mg/dL 35 - 160 HDL 45 mg/dL 29 - 86 LDL 93 mg/dL 65 - 175 Risk Factor 3.5 3.4 - 4.9 LDL/HDL 2.07 1.00 - 3.55 16 Laboratory test finding 06/13/2020 [facility] l TSH Highly Sensitive 0.38 uIU/mL Low 0.47 - 5.01 Hgba1c 7.5 % High 4.4 - 6.1 17 Magnesium Serum 1.8 mg/dL 1.7 - 2.2 1 Is patient fasting? Y 2 COMPLETE [...] result was determined by "ECLIA", on the [employer] GIUSEPPE 6000. Values obtained with different assay [...] Normal 80 and above >32 mL/min Normal 11 Is patient fasting? N 12 COMPLETE BLOOD COUNT 13 COMPREHENSIVE METABOLIC PANE L 14 Male GFR Interprentation 20-49 yrs >60 mL/min Normal 50-59 yrs >56 mL/min Normal 60-69 yrs >49 mL/min Normal 70-79yrs >42 mL/min Normal 80 and above >35 mL/min Normal Female GFR Interpretation 20-39 yrs >60 mL/min Normal 40-49 yrs >58 mL/min Normal 50-59 yrs >51 mL/min Normal 60-69 yrs >45 mL/min Normal 70-79 yrs >39 mL/min Normal 80 and above >32 mL/min Normal 15 LIPID PANEL 16 CVE RISK CHOL/HDL LDL/HDL MEN: 1/2 AVERAGE 3.43 1.00 AVERAGE 4.97 3.55 2X AVERAGE 9.55 6.25 3X AVERAGE 23.99 7.99 WOMEN: 1/2 AVERAGE 3.27 1.47 AVERAGE 4.44 3.22 2X AVERAGE 7.05 5.03 3X AVERAGE 11.04 6.14 17 {A1] {HB] Procedures Date Code Description Status 09/25/2020 03238 Admin Patient Focused Health Ris k Assessment Instrument Completed 06/20/2020 17085 Brief Emotional/Beha v Assessment W/ Scoring Doc Per Standard Inst Completed Medical Devices Description No Information Available Encounters Type Date Location Provider Dx Diagnosis Office Visit 09/25/2020 9:20a [facility] Da PILAR Johnson-BC, PNP Z00.01 Encounter for general adult medical exam w abnormal findings R20.1 Hypoesthesia of skin H26.9 Unspecified cataract E11.65 Type 2 diabetes mellitus wit h hyperglycemia E78.1 Pure hyperglyceridemia I10 Essential (primary) hyperten mdaalyn E03.9 Hypothyroidism, unspecified E66.01 Morbid (severe) obesity due to excess calories E55.9 Vitamin D deficiency, unspec ified Z79.899 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 Z68.34 Body mass index [BMI] 34.0-3 4.9, adult Assessments Date Code Description Provider 09/25/2020 Z00.01 Encounter for jose cook adult medical examination with abnormal findings ANTONIA Piña, PNP 09/25/2020 R20.1 Hypoesthesia of skin ANTONIA Piña, PNP 09/25/2020 H26.9 Unspecified cataract ANTONIA Piña, PNP 09/25/2020 E11.65 Type 2 diabetes mellitus with hy perglycemia TERRELL Piña, PNP 09/25/2020 E78.1 Pure hyperglyceridemia ANTONIA Norman, PNP 09/25/2020 I10 Essential (primary) hypertension ANTONIA Piña, PNP 09/25/2020 E03.9 Hypothyroidism, unspecified ANTONIA Piña, PNP 09/25/2020 E66.01 Morbid (severe) obesity due to e xcess calories ANTONIA Piña, PNP 09/25/2020 E55.9 Vitamin D deficiency, unspecifie d ANTONIA Piña, PNP 09/25/2020 Z79.899 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 ANTONIA Piña, PNP 09/25/2020 Z68.34 Body mass index [BMI] 34.0-34.9, adult ANTONIA Piña, PNP 09/20/2020 E11.65 Type 2 diabetes mellitus with hy perglycemia [facility] 09/20/2020 E03.9 Hypothyroidism, unspecified [facility] 09/20/2020 Z79.899 Other detention (current) drug t herapy [facility] 09/20/2020 E78.1 Pure hyperglyceridemia [place] [facility] [facility] 09/20/2020 Z80.42 Family history of malignant neop lasm of prostate [facility] 09/20/2020 R79.89 Other specified abnormal finding [facility] of blood [facility] E11.65 Type 2 diabetes mellitus with hy perglycemia [facility] 07/21/2020 R79.89 Other specified abnormal finding s of blood chemistry [facility] 06/20/2020 E11.65 Type 2 diabetes mellitus with hy perglycemia TERRELL Piña, PNP 06/20/2020 E03.9 Hypothyroidism, unspecified ANTONIA Piña, PNP 06/20/2020 I10 Essential (primary) hypertension ANTONIA Piña, PNP 06/20/2020 E78.1 Pure hyperglyceridemia ANTONIA Norman, PNP 06/20/2020 R79.89 Other specified abnormal finding s of blood chemistry ANTONIA Piña, PNP 06/20/2020 E66.01 Morbid (severe) obesity due to e xcess calories ANTONIA Piña, PNP 06/20/2020 Z68.33 Body mass index (BMI) 33.0-33.9, adult ANTONIA Piña, PNP 06/20/2020 Z79.899 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 ANTONIA Piña PNP 06/13/2020 E11.65 Type 2 diabetes mellitus with hy perglycemia [facility] 06/13/2020 E03.9 Hypothyroidism, unspecified [facility] 06/13/2020 Z79.899 Other detention (current) drug t herapy [facility] 06/13/2020 E78.1 Pure hyperglyceridemia [facility] Plan of Treatment Future Appointment(s):* 12/27/2020 8:00 am - ANTONIA Piña PNP at [facility] * 12/21/2020 8:00 am - [facility] 09/25/2020 - ANTONIA Piña PNP* Z00.01 Encounter for general adult medical examination with abnormal findings* Comments:* Encouraged to exercise on a regular basis and watch his weight. Recent labs reviewed. Goal is to keep his health issues stable so he can remain active and live independently. * Follow up:* FU in 3 months, fasting labs 1 week prior * R20.1 Hypoesthesia of skin* Comments:* Numbness of feet - refer to Podiatry for diabetic foot exam * Referral:* Estephania Goel DPM pc, Materials And Processes Manager * H26.9 Unspecified cataract* Comments:* He was given a referral to Ophthalmology for evaluation of cataracts due to his hx of macular pucker repaired last year and since then he has noticed an increased obstruction of vision from his cataracts. * E11.65 Type 2 diabetes mellitus with hyperglycemia* Comments:* His fasting glucose high at 129 with an A1c high at 7.2. The patient was advised to continue with his current medication regimen. He will benefit from maintain ing a diabetic diet and a regular exercise regimen. We will continue to monitor. * Referral:* Estephania Goel DPM pc, Materials And Processes Manager * E78.1 Pure hyperglyceridemia* Comments:* Labs reviewed with the patient in detail.Lipid panel showed:CHOL at 175.TRG high at 176.HDL at 41.LDL at 103.He will continue with his current regimen. He was encouraged to maintain a low cholesterol diet and a regular exercise regimen. Decrease saturated Fats (meat, dairy products and processed foods)Increase Unsaturated fats (fish, plants, nuts, seeds, beans and vegetable oils)Read Labels * I10 Essential (primary) hypertension* Comments:* JNC8 Guidelines - Pt white Female > 60 Discontinued Olmesartan due to elevated BUN and creatinine since starting that med.To continue Doxazosin 2 mg 1 tab PO daily.BP is at goal 112/68. Continue current treatment and monitor. She will benefit from maintaining a low sodium diet. * E03.9 Hypothyroidism, unspecified* Comments:* His TSH is at 0.77. The patient was advised to continue current medication regimen. We will need to monitor his TSH periodically. * E66.01 Morbid (severe) obesity due to excess calories* Comments:* The patient currently weighs around 217 pounds with a BMI of 34. The underlying risks of morbid obesity were once again reviewed with him in detail, greater than 10 minutes spent on counselling. He was strongly encouraged to maintain a low- calorie diet. We will continue to monitor. * E55.9 Vitamin D deficiency, unspecified* Comments:* Vit D at 35.We will continue to monitor through periodic bloodwork. * Follow up:* FU in 3 months, fasting labs first. * Z79.899 Other detention (current) drug therapy* Comments:* Patient to continue to follow the current plan of care and to look for any new or worsening symptoms. We will continue to monitor through periodic blood work. * Follow up:* FU in 3 months, fasting labs first. * Z68.34 Body mass index [BMI] 34.0-34.9, adult* Comments:* His BMI is at 34. The patient was strongly encouraged to lose weight with low-calorie diet and exercises. We will continue to monitor weight and BMI periodically. 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 He is requesting referral to your office for evaluation. Sent [phone] [id number] [phone] Estephania Goel, CEDRICK pc Please see this 65 yo man wh o c/o numbness feet. He also needs diabetic foot exam. He has Hx Type 2 DM, last A1C 09/2020 was 7.2 Sent 10/03/[address] [place] [id number] [phone]
--- OUTSIDE RECORDS SUMMARY | 2020-12-21 07:07 | CCD ---
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/2020 Hypothyroidism ANTONIA Piña PNP Onset: 0 Pure hyperglyceridemia ANTONIA Piña, RIP Onset: 2019 Moderate recurrent major depression ANTONIA Piña PNP Onset: 06/20/2020 Anxiety state ANTONIA Piña PNP Onset: 0 Taking medication ANTONIA Piña PNP Onset: 0 Pilonidal cyst without abscess ANTONIA Piña PNP Onset : 06/20/2020 Family history of prostate cancer [facility] Onset: 06/20/2020 Pilonidal cyst with abscess [...] Provide r Date Doxazosin Mesylate 2mg Tablets Take 1 Tablet By Mouth Every Am For Blood Pressure 90tabs ANTONIA Piña, PNP 06/20/2020 Metformin HCL [...] CPT Code Status Date Vaccine Lot # [id number] Given 08/10/2020 Influenza (>= 6 Months) P.F. [...] H/L Range Note CBC W/Automated Diff 09/20/2020 [facility] CBC W/Automated Diff (SEE NOTE) [...] 80.0 Lymph 37.0 % 25.0 - 40.0 [place] 10.3 % High 3.0 - 8.0 Eos 2.5 % 0.0 - 7.0 Baso 0.8 % 0.0 - 2.0 %Ig 0.3 % High 0.0 - 0.0 %NRBC 0.0 % 0.0 - 0.0 #Neut 2.96 10^3/uL 2.00 - 6.90 #Lymph 2.23 10^3/uL 0.60 - 3.40 #[place] 0.62 10^3/uL 0.00 - 0.90 #Eos 0.15 10^3/uL 0.00 - 0.70 #Baso 0.05 10^3/uL 0.00 - 0.20 #Ig 0.02 10^3/uL 0.00 - 0.10 #NRBC 0.00 10^3/uL 0.00 - 0.00 Manual Diff NOT INDICATED RBC Morph NOT INDICATED Comprehensive Metabolic Panel 09/20/[address] [facility] Comprehensive Metabo (SEE NOTE) 3 Sodium [...] GFR >60 mL/min 4 Cve Panel 09/20/2020 [facility] Cve Panel (SEE NOTE) 5 Cholesterol 175 mg/dL 131 - 200 Triglycerides 176 mg/dL High 35 - 160 HDL 41 mg/dL 29 - 86 LDL 103 mg/dL 65 - 175 Risk Factor 4.3 3.4 - 4.9 LDL/HDL 2.51 1.00 - 3.55 6 Laboratory test finding 09/20/2020 [facility] TSH Highly Sensitive 0.77 uIU/mL 0.47 - 5.01 Hgba1c 7.2 % High 4.4 - 6.1 7 Magnesium Serum 1.8 mg/dL 1.7 - 2.2 Laboratory test finding 09/20/2020 [facility] Vitamin D (25-Hydroxy) 35 NG/ML 8 PSA - Diagnostic 2.33 ng/mL 0.00 - 4.00 9 Laboratory test finding 07/21/2020 [facility] BUN 17 mg/dL 7 - 21 Creatinine Serum 07/21/2020 [facility] Creatinine 1.1 mg/dL 0.7 - 1.5 Age 65 yrs Non-Aa GFR >60 mL/min Afr Amer GFR >60 mL/min 10 CBC W/Automated Diff 06/13/2020 [facility] CBC W/Automated Diff (SEE NOTE) [...] 80.0 Lymph 33.3 % 25.0 - 40.0 [place] 13.0 % High 3.0 - 8.0 Eos 2.2 % 0.0 - 7.0 Baso 0.5 % 0.0 - 2.0 %Ig 0.3 % High 0.0 - 0.0 %NRBC 0.0 % 0.0 - 0.0 #Neut 2.99 10^3/uL 2.00 - 6.90 #Lymph 1.97 10^3/uL 0.60 - 3.40 #[place] 0.77 10^3/uL 0.00 - 0.90 #Eos 0.13 10^3/uL 0.00 - 0.70 #Baso 0.03 10^3/uL 0.00 - 0.20 #Ig 0.02 10^3/uL 0.00 - 0.10 #NRBC 0.00 10^3/uL 0.00 - 0.00 Manual Diff NOT INDICATED RBC Morph NOT INDICATED Comprehensive Metabolic Panel 06/13/2020 [facility] Comprehensive Metabo (SEE NOTE) 13 Sodium [...] GFR 39 mL/min 14 Cve Panel 06/13/2020 [facility] Cve Panel (SEE NOTE) 15 Cholesterol 158 mg/dL 131 - 200 Triglycerides 107 mg/dL 35 - 160 HDL 45 mg/dL 29 - 86 LDL 93 mg/dL 65 - 175 Risk Factor 3.5 3.4 - 4.9 LDL/HDL 2.07 1.00 - 3.55 16 Laboratory test finding 06/13/2020 [facility] l TSH Highly Sensitive 0.38 uIU/mL Low [...] result was determined by "ECLIA", on the [employer] GIUSEPPE 6000. Values obtained with different assay [...] {HB] Procedures Date Code Description Status 09/25/2020 62283 Admin Patient Focused Health Ris k Assessment Instrument Completed 06/20/2020 75680 Brief Emotional/Beha v Assessment W/ Scoring Doc Per Standard Inst Completed Medical Devices Description No Information Available Encounters Description No Information Available Assessments Date Code Description Provider 09/25/2020 Z00.01 Encounter for genera l adult medical examination with abnormal findings ANTONIA Piña, PNP 09/25/2020 E11.65 Type 2 diabetes mellitus with hy perglycemia TERRELL Piña, PNP 09/25/2020 E78.1 Pure hyperglyceridemia ANTONIA Norman, PNP 09/25/2020 I10 Essential (primary) hypertension ANTONIA Piña, PNP 09/25/2020 E03.9 Hypothyroidism, unspecified ANTONIA Piña, PNP 09/25/2020 E66.01 Morbid (severe) obesity due to e xcess calories ANTONIA Piña, PNP 09/25/2020 Z79.899 Other long-term (current) drug t herapy ANTONIA Piña, PNP 09/25/2020 E55.9 Vitamin D deficiency, unspecifie d ANTONIA Piña, PNP 09/25/2020 Z68.33 Body mass index [BMI] 33.0-33.9, adult ANTONIA Piña, PNP 09/20/2020 E11.65 Type 2 diabetes mellitus with hy perglycemia [facility] 09/20/2020 E03.9 Hypothyroidism, unspecified [facility] 09/[facility]/2020 Z79.899 Other long-term (current) drug t herapy [facility] 09/20/2020 E78.1 [facility] 09/20/2020 Z80.42 Family history of malignant neop lasm of prostate [facility] 09/20/2020 R79.89 Other specified abnormal finding s of blood chemistry [facility] 07/21/2020 E11.65 Type 2 diabetes mellitus with hy perglycemia [facility] 07/21/2020 R79.89 Other specified abnormal finding s of blood chemistry [facility] 06/20/2020 E11.65 Type 2 diabetes mellitus [...] Piña, PNP 06/20/2020 Z79.899 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 Recent labs reviewed. Goal is to keep his health issues stable so he can remain active and live independently. * E11.65 Type 2 diabetes mellitus with hyperglycemia* Comments:* His fasting glucose high at 129 with an A1c high at 7.2. The patient was advised to continue with his current medication regimen. He will benefit from maintain ing a diabetic diet and a regular exercise regimen. We will continue to monitor. * E78.1 Pure hyperglyceridemia* Comments:* Labs reviewed [...] Morbid (severe) obesity due to excess calories * Z79.899 Other long-term (current) drug therapy* Comments:* Patient to continue to follow the current plan of care and to look for any new or worsening symptoms. We will continue to monitor through periodic blood work. * Follow up:* FU in 3 months, fasting labs first. * E55.9 Vitamin D deficiency, unspecified* Follow up:* FU in 3 months, fasting labs first. * Z68.33 Body mass index [BMI] 33.0-33.9, adult Functional Status Description No Information Available Mental Status Description No Information Available Referrals Description No Information Available
--- OUTSIDE RECORDS SUMMARY | 2020-12-21 07:07 | CCD | Continuity of Care Document ---
Author Author Adrián CAO Organization Unknown Address [address] [place] [id number] Phone [phone] Care Team Providers Care Mortarman Name Role Phone Tonia Cao AUTM [phone] Problems Active Problems Provider Date Pure hypercholesterolemia Ari Coello MD Onset: 019 Essential hypertension Ari Coello MD Onset: 04/27/2019 Type II diabetes mellitus uncontrolled ANTONIA Piña, P [employer]PER Onset: 06/20/2020 Hypothyroidism ANTONIA Piña PNP Onset: 0 Pure hyperglyceridemia ANTONIA Piña, PNP Onset: 2019 Moderate recurrent major depression ANTONIA Piña, PNP Onset: 06/20/2020 Anxiety state ANTONIA Piña PNP Onset: 0 Taking medication ANTONIA Piña PNP Onset: 0 Pilonidal cyst without abscess ANTONIA Piña PNP Onset : 06/20/2020 Family history of prostate cancer [facility] Onset: 06/20/2020 Pilonidal cyst with abscess [...] CPT Code Status Date Vaccine Lot # [id number] Given 08/10/2020 Influenza (>= 6 Months) P.F. [...] H/L Range Note CBC W/Automated Diff 09/20/2020 [facility] CBC W/Automated Diff (SEE NOTE) [...] 80.0 Lymph 37.0 % 25.0 - 40.0 [place] 10.3 % High 3.0 - 8.0 Eos 2.5 % 0.0 - 7.0 Baso 0.8 % 0.0 - 2.0 %Ig 0.3 % High 0.0 - 0.0 %NRBC 0.0 % 0.0 - 0.0 #Neut 2.96 10^3/uL 2.00 - 6.90 #Lymph 2.23 10^3/uL 0.60 - 3.40 #[place] 0.62 10^3/uL 0.00 - 0.90 #Eos 0.15 10^3/uL 0.00 - 0.70 #Baso 0.05 10^3/uL 0.00 - 0.20 #Ig 0.02 10^3/uL 0.00 - 0.10 #NRBC 0.00 10^3/uL 0.00 - 0.00 Manual Diff NOT INDICATED RBC Morph NOT INDICATED Comprehensive Metabolic Panel 09/20/2020 [facility] Comprehensive Metabo (SEE NOTE) 3 Sodium [...] GFR >60 mL/min 4 Cve Panel 09/20/2020 [facility] Cve Panel (SEE NOTE) 5 Cholesterol 175 mg/dL 131 - 200 Triglycerides 176 mg/dL High 35 - 160 HDL 41 mg/dL 29 - 86 LDL 103 mg/dL 65 - 175 Risk Factor 4.3 3.4 - 4.9 LDL/HDL 2.51 1.00 - 3.55 6 Laboratory test finding 09/20/2020 [facility] TSH Highly Sensitive 0.77 uIU/mL 0.47 - 5.01 Hgba1c 7.2 % High 4.4 - 6.1 7 Magnesium Serum 1.8 mg/dL 1.7 - 2.2 Laboratory test finding 09/20/2020 [facility] Vitamin D (25-Hydroxy) 35 NG/ML 8 PSA - Diagnostic 2.33 ng/mL 0.00 - 4.00 9 Laboratory test finding 07/21/2020 [facility] BUN 17 mg/dL 7 - 21 Creatinine Serum 07/21/2020 [facility] Creatinine 1.1 mg/dL 0.7 - 1.5 Age 65 yrs Non-Aa GFR >60 mL/min Afr Amer GFR >60 mL/min 10 CBC W/Automated Diff 06/13/2020 [facility] CBC W/Automated Diff (SEE NOTE) [...] 80.0 Lymph 33.3 % 25.0 - 40.0 [place] 13.0 % High 3.0 - 8.0 Eos 2.2 % 0.0 - 7.0 Baso 0.5 % 0.0 - 2.0 %Ig 0.3 % High 0.0 - 0.0 %NRBC 0.0 % 0.0 - 0.0 #Neut 2.99 10^3/uL 2.00 - 6.90 #Lymph 1.97 10^3/uL 0.60 - 3.40 #[place] 0.77 10^3/uL 0.00 - 0.90 #Eos 0.13 10^3/uL 0.00 - 0.70 #Baso 0.03 10^3/uL 0.00 - 0.20 #Ig 0.02 10^3/uL 0.00 - 0.10 #NRBC 0.00 10^3/uL 0.00 - 0.00 Manual Diff NOT INDICATED RBC Morph NOT INDICATED Comprehensive Metabolic Panel 06/13/2020 [facility] Comprehensive Metabo (SEE NOTE) 13 [...] GFR 39 mL/min 14 Cve Panel 06/13/2020 [facility] Cve Panel (SEE NOTE) 15 Cholesterol 158 mg/dL 131 - 200 Triglycerides 107 mg/dL 35 - 160 HDL 45 mg/dL 29 - 86 LDL 93 mg/dL 65 - 175 Risk Factor 3.5 3.4 - 4.9 LDL/HDL 2.07 1.00 - 3.55 16 Laboratory test finding 06/13/2020 [facility] TSH Highly Sensitive 0.38 uIU/mL Low [...] result was determined by "[employer]", on the [employer] GIUSEPPE 6000. Values obtained with different assay [...] {HB] Procedures Date Code Description Status 09/25/2020 68397 Admin Patient Focused Health Ris k Assessment Instrument Completed 06/20/2020 06954 Brief Emotional/Beha v Assessment W/ Scoring Doc [...] Essential (primary) hypertension ANTONIA Piña, PNP 09/25/2020 H26.9 Unspecified cataract ANTONIA Piña, PNP 09/25/2020 E03.9 Hypothyroidism, unspecified ANTNOIA Piña, PNP 09/25/2020 E66.01 Morbid (severe) obesity due to e xcess calories ANTONIA Piña, PNP 09/25/2020 E55.9 Vitamin D deficiency, unspecifie d ANTONIA Piña, PNP 09/25/2020 Z79.899 [facility] jail (current) drug t herapy ANTONIA Piña, PNP 09/25/2020 Z68.34 Body mass index [BMI] 34.0-34.9, adult ANTONIA Piña, PNP 09/20/2020 E11.65 Type 2 diabetes mellitus with hy perglycemia [facility] 09/20/2020 E03.9 Hypothyroidism, unspecified [facility] 09/20/2020 Z79.899 Other jail (current) drug t herapy [facility] 09/20/2020 E78.[address] 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 ANTONIA Piña PNP 06/13/2020 E11.65 Type 2 diabetes mellitus with hy perglycemia [facility] 06/13/2020 E03.9 Hypothyroidism, unspecified [facility] 06/13/2020 Z79.899 Other jail (current) drug t herapy [facility] 06/13/2020 E78.1 Pure hyperglyceridemia [facility] Plan of Treatment Future Appointment(s):* 12/27/2020 8:00 am - ANTONIA Piña PNP at [facility] * 12/21/2020 8:00 am - [facility] at [facility] 09/25/2020 - ANTONIA Piña, PNP* Z00.01 Encounter [...] from maintaining a low sodium diet. * H26.9 Unspecified cataract* Comments:* He was given a referral to Ophthalmology for evaluation of cataracts due to his hx of macular pucker repaired last year and since then he has noticed an increased obstruction of vision from his cataracts. * E03.9 Hypothyroidism, unspecified* Comments:* His TSH [...] months, fasting labs first. * Z79.899 Other jail (current) drug therapy* Comments:* Patient to continue [...] requesting referral to your office for evaluation. Created [address] [facility] [address] [place], [place] [id number] [phone]
--- OUTSIDE RECORDS SUMMARY | 2020-12-21 07:08 | CCD ---
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 physiologi tuan condition ANXIETY DISORDER DUE TO KNOWN PHYSIOLOGICAL CONDIT Diagnosis 11/16/2019 08:00:00 AM [facility] 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 MOOD DISORD D/T PHYSIOL COND W MAJOR DEPRESSIVE-LI Diagnosis 11/16/2019 08:00:00 AM [facility] F07.81 Postconcussional syndrome POSTCONCUSSIONAL SYNDROME Di agnosis 11/16/2019 08:00:00 AM [facility] Surgeries/Procedures Procedure Description Date Indications Data Source(s) Admin Patient Focused Health Risk Assessment Instrument 09/25/2020 12:00:00 AM [facility] ([facility]) Brief Emotional/Behav Assessment W/ Scoring Doc Per Standard Inst 06/20/2020 12:00:00 AM [facility] ([facility]) Results ID Date Data Source [id number] 12/18/2020 06:10:00 PM [facility] Name Value Range Interpretation Code Description Data Jyoti rce(s) Supporting Document(s) Calcidiol [Moles/volume] in Serum or Plasma 43 NG/ML [facility] VITAMIN-D(2 5HYDROXY) Deficiency: <=20 ng/ml Insufficiency: 21-29 ng/ml Preferred level: => 30 ng/ml ID Date Data Source [id number] 12/18/2020 06:10:00 PM [facility] Name Value Range Interpretation Code Description Data Jyoti rce(s) Supporting Document(s) Thyrotropin [Units/volume] in Serum or Plasma by Detec tion limit <= 0.05 mIU/L 1.67 uIU/mL 0.47 - 5.01 [facility] ID Date Data Source [id number] 12/18/2020 08:32:00 AM EST [facility] ([facility]) Name Value Range Interpretation Code Description Data Jyoti rce(s) Supporting Document(s) Thyrotropin [Units/volume] in Serum or Plasma Laboratory test result [facility] ([facility]) Hemoglobin A1c/Hemoglobin.total in Blood Laboratory test result [facility] ([facility]) Magnesium [Mass/volume] in Serum or Plasma Laboratory test result [facility] ([facility]) Calcidiol [Mass/volume] in Serum or Plasma Laboratory test result [facility] ([facility]) ID Date Data Source [id number] 12/18/2020 05:44:00 PM EST [facility] Name Value Range Interpretation Code Description Data Jyoti rce(s) Supporting Document(s) Magnesium [Mass/volume] in Serum or Plasma 1.8 MG/DL 1.7 - 2.2 [facility] ID Date Data Source [id number] 12/18/2020 05:43:00 PM EST [facility] Name Value Range Interpretation Code Description Data Jyoti rce(s) Supporting Document(s) CVE PANEL [facility] LIPID PANEL Cholesterol [Mass/volume] in Serum or Plasma 149 MG/DL 131 - 200 [facility] Deprecated Triglyceride [Mass/volume] in Serum or Plasma 148 MG/DL 3 5 - 160 [facility] HDL 43 MG/DL 29 - 86 [facility] Cholesterol in LDL [Mass/volume] in Serum or Plasma by Direc t assay 93 mg/dL 65 - 175 [facility] Cholesterol.total/Cholesterol in HDL [Mass Ratio] in Serum o r Plasma 3.5 3.4 - 4.9 [facility] LDL/HDL 2.16 1.00 - 3.55 [facility] ital CVE RISK CHOL/HDL LDL/HDLMEN: 1/2 AVERAGE 3.43 1.00 AVERAGE 4.97 3.55 2X AVERAGE 9.55 6.25 3X AVERAGE 23.99 7.99WOMEN: 1/2 AVERAGE 3.27 1.47 AVERAGE 4.44 3.22 2X AVERAGE 7.05 5.03 3X AVERAGE 11.04 6.14 ID Date Data Source [id number] 12/18/2020 05:43:00 PM EST [facility] Name Value Range Interpretation Code Description Data Jyoti rce(s) Supporting Document(s) COMPREHENSIVE METABOLIC PANEL [facility] COMPREHENSIVE METABOLIC PANEL Sodium [Moles/volume] in Serum or Plasma 139 mEq/L 134 - 153 [facility] Potassium [Moles/volume] in Serum or Plasma 4.5 mEq/L 3.6 - 5.0 [facility] Chloride [Moles/volume] in Serum or Plasma 103 mEq/L 98 - 107 [facility] Carbon dioxide, total [Moles/volume] in Serum or Plasma 29 MEQ/L 22 - 30 [facility] Glucose [Mass/volume] in Serum or Plasma 138 MG/DL 70 - 99 H [facility] BUN 19 MG/DL 7 - 21 [facility] Creatinine [Mass/volume] in Serum or Plasma 1.1 MG/DL 0.7 - 1.5 [facility] BUN/CREAT 17 8 - 27 [facility] Protein [Mass/volume] in Serum or Plasma 7.3 G/DL 6.3 - 8.2 [facility] Albumin [Mass/volume] in Serum or Plasma 4.2 G/DL 3.9 - 5.0 [facility] Globulin [Mass/volume] in Serum by calculation 3.1 GM/DL 2.4 - 3.2 [facility] A/G RATIO 1.4 0.8 - 2.0 [facility] Calcium [Mass/volume] in Serum or Plasma 9.2 MG/DL 8.4 - 10.2 [facility] Bilirubin.total [Mass/volume] in Serum or Plasma 0.7 MG/DL 0.2 - 1.3 [facility] Alkaline phosphatase [Enzymatic activity/volume] in Serum or Plasma 60 U/L 38 - 126 [facility] Aspartate aminotransferase [Enzymatic activity/volume] in Serum or Plasma 16 U/L 5 - 40 [facility] Alanine aminotransferase [Enzymatic activity/volume] in Seru m or Plasma 15 U/L 7 - 56 [facility] Anion gap 3 in Serum or Plasma 7.0 mmol/L 8.0 - 16.0 L [facility] AGE 65 yrs [facility] NON-AA GFR >60 mL/min [facility] AFR AMER GFR >60 mL/min [facility] Male GFR In terprentation 20-49 yrs >60 mL/min Normal 50-59 yrs >56 mL/min Normal 60-69 yrs >49 mL/min Normal 70-79yrs >42 mL/min Normal 80 and above >35 mL/min Normal Female GFR Interpretation 20-39 yrs >60 mL/min Normal 40-49 yrs >58 mL/min Normal 50-59 yrs >51 mL/min Normal 60-69 yrs >45 mL/min Normal 70-79 yrs >39 mL/min Normal 80 and above >32 mL/min Normal ID Date Data Source [id number] 12/18/2020 05:42:00 PM [facility] Name Value Range Interpretation Code Description Data Jyoti rce(s) Supporting Document(s) Hemoglobin A1c/Hemoglobin.total in Blood 7.5 % 4.4 - 6.1 H [facility] {A1]{HB] ID Date Data Source [id number] 12/18/2020 05:24:00 PM [facility] Name Value Range Interpretation Code Description Data Jyoti rce(s) Supporting Document(s) CBC W/AUTOMATED DIFF [facility] COMPLETE BLOOD COUNT Leukocytes [#/volume] in Blood by Automated count 5.6 10^3/uL 4.2 - 1 1.0 [facility] Erythrocytes [#/volume] in Blood by Automated count 4.96 10^6/uL 4. 50 - 6.30 [facility] Hemoglobin [Mass/volume] in Blood 15.2 g/dL 14.0 - 16.0 [facility] Hematocrit [Volume Fraction] of Blood by Automated count 46.2 % 4 1.0 - 51.0 [facility] Erythrocyte mean corpuscular volume [Entitic volume] by Auto mated count 93.1 fL 80.0 - 94.0 [facility] Erythrocyte mean corpuscular hemoglobin [Entitic mass] by Automated count 30.6 pg 27.0 - 34.0 [facility] Erythrocyte mean corpuscular hemoglobin concentration [Mass/volume] by Automated count 32.9 g/dL 31.0 - 36.0 [facility] Erythrocyte distribution width [Ratio] by Automated count 13.0 % 11.5 - 14.8 [facility] Platelets [#/volume] in Blood by Automated count 296 10^3/uL 150 - 45 0 [facility] Platelet mean volume [Entitic volume] in Blood by Automated count 10.3 fL 7.4 - 10.4 [facility] Neutrophils/100 leukocytes in Blood by Automated count 47.2 % 37. 0 - 80.0 [facility] Lymphocytes/100 leukocytes in Blood by Manual count 38.4 % 25.0 - 40.0 [facility] Monocytes/100 leukocytes in Blood by Automated count 11.2 % 3.0 - 8.0 H [facility] Eosinophils/100 leukocytes in Blood by Automated count 2.1 % 0.0 - 7.0 [facility] Basophils/100 leukocytes in Blood by Automated count 0.9 % 0.0 - 2.0 [facility] %IG 0.2 % 0.0 - 0.0 H [facility] %NRBC 0.0 % 0.0 - 0.0 [facility] Neutrophils [#/volume] in Blood by Automated count 2.66 10^3/uL 2.00 - 6.90 [facility] Lymphocytes [#/volume] in Blood by Automated count 2.16 10^3/uL 0.60 - 3.40 [facility] Monocytes [#/volume] in Blood by Automated count 0.63 10^3/uL 0.00 - 0.90 [facility] Eosinophils [#/volume] in Blood by Automated count 0.12 10^3/uL 0.00 - 0.70 [facility] Basophils [#/volume] in Blood by Automated count 0.05 10^3/uL 0.00 - 0.20 [facility] #IG 0.01 10^3/uL 0.00 - 0.10 [facility] #NRBC 0.00 10^3/uL 0.00 - 0.00 [facility] MANUAL DIFF NOT INDICATED [facility] RBC MORPH NOT INDICATED [facility] ID Date Data Source [id number] 12/16/2020 09:00:00 AM EST [facility] Name Value Range Interpretation Code Description Data Jyoti rce(s) Supporting Document(s) SARS coronavirus 2 RNA Not Detected [facility] This lab was ordered by [facility] and reported by [facility]. ID Date Data Source [id number] 10/19/2020 02:09:45 PM EST [facility] Name Value Range Interpretation Code Description Data Jyoti rce(s) Supporting Document(s) Progress Note [facility] TJIVDs7vLnUKYnCr89/RFFshOUUyc8TfAExcRWq8VQlaTDHfS9ZqMDO4eF3aQNC4PWyFWeYcOmMnZcQ6 lbm [file] YRj4FwkTOBghmEY2QrY+LsYX5LibaFl95KINDA4kRWWiKcRIEQTmPjKhT5PuNUJGhb8LeKBswJpRf+bail bond agent kRaR7qbMj/w4GSbUUXPDcei2t21O1SLwftcyLQLMZfBCSRdYTqGZ8dNhQeLWNa7I6f9u6VTIBrAlcR7J a1QIn2WfNkEXOH8HpkpZ+y7ht2Kz0mpyPwXV56Zj9X Vx2+7IV3XAdl4s8RM0tslBfKP9I68YGENYJu1nJZU/wPH9C+zUHxLGGdlOUvqTWwBFlLriCvGk+ZBJvK QzRSdXOtPAUOtwnJfcMT25Xk1UXJgoHtlwn7vO69CKuwwoB2hq86OVqrgkhHocJzBeRt9Arv2LzMcG2C /S6g0ui8TM00d+For2hNb6xeCXEm2G+xWbfDxPq2Js SOb7bN0t7LExj+ZwrhGmgtsjCKtY7P7eiN7TQVcUUb8uE7XxHxUwnboFE//M38/Hz+pr627qahV/fzcn nR0UwugxUrAFj5m5P+HaMvJwU9hTehzLHuu+6Nw3fuGweLjfYHPa7P025yGWl9di81anXDfBqjx/Elena [file] Ie3Js4GcaeM6doEzNOn5HkyvBX4SHOUDS1LOKa== ID Date Data Source [id number] 10/19/2020 01:53:04 PM EST [facility] XR SHOULDER COMPLETE [id number] RESULTIn terpreted by:Jeff Conley MDTechnique: AP, Grashey AP, scapular Y and axillary lateral views right shoulderComparison: NoneFindings: Degenerative change of the glenohumeral joint with inferior humeral head osteophyte. Mild glenohumeral joint space narrowing. Slightly high riding humeral head.Mild joint space narrowing of acromioclavicular joint.No fracture or dislocation is identified. No other soft tissue or bony lesions identified. Visualized lung logan clear.Impression:1. Glenohumeral and acromioclavicular degenerative changes as above2. Slightly high riding humeral headThis document has been electronically signed by Jeff Conley MD on 10/19/2020 1:50 PM Name Value Range Interpretation Code Description Data Jyoti rce(s) Supporting Document(s) ID Date Data Source [id number] 09/20/2020 08:15:00 AM EST [facility] ([facility]) Name Value Range Interpretation Code Description Data Jyoti rce(s) Supporting Document(s) Prostate specific Ag [Mass/volume] in Serum or Plasma 2.33 ng/mL 0.00 -4.00 [facility] ([facility]) Is patient fasting? Y Calcidiol [Mass/volume] in Serum or Plasma 35 ng/mL [facility] ([facility]) Is patient fasting? Y ID Date Data Source [id number] 09/20/2020 08:15:00 AM EST [facility] ([facility]) Name Value Range Interpretation Code Description Data Jyoti rce(s) Supporting Document(s) Thyrotropin [Units/volume] in Serum or Plasma 0.77 uIU/mL 0.47-5.01 [facility] ([facility]) Is patient fasting? Y Magnesium [Mass/volume] in Serum or Plasma 1.8 mg/dL 1.7-2.2 [facility] ([facility]) Is patient fasting? Y Hemoglobin A1c/Hemoglobin.total in Blood 7.2 % 4.4-6.1 Above high normal [facility] ([facility]) Is patient fasting? Y ID Date Data Source [id number] 09/20/2020 08:15:00 AM EST [facility] ([facility]) Name Value Range Interpretation Code Description Data Jyoti rce(s) Supporting Document(s) Cve Panel Laboratory test result [facility] ([facility]) Is patient fasting? Y Triglycerides 176 mg/dL 35-160 Above high normal [facility] ([facility]) Is patient fasting? Y Cholesterol 175 mg/dL 131-200 [facility] ([facility]) Is patient fasting? Y HDL 41 mg/dL 29-86 [facility] ([facility]) Is patient fasting? Y Risk Factor 4.3 3.4-4.9 [facility] ([facility]) Is patient fasting? Y LDL 103 mg/dL 65-175 [facility] ([facility]) Is patient fasting? Y LDL/HDL 2.51 1.00-3.55 [facility] ([facility]) Is patient fasting? Y ID Date Data Source [id number] 09/20/2020 08:15:00 AM EST [facility] ([facility]) Name Value Range Interpretation Code Description Data Jyoti rce(s) Supporting Document(s) Sodium 142 meq/L 134-153 [facility] ([facility]) Is patient fasting? Y Potassium 4.5 meq/L 3.6-5.0 [facility] ([facility]) Is patient fasting? Y Comprehensive Metabo Laboratory test result [facility] ([facility]) Is patient fasting? Y Chloride 104 meq/L 98-107 [facility] ([facility]) Is patient fasting? Y Co2 32 meq/L 22-30 Above high normal [facility] ([facility]) Is patient fasting? Y Creatinine 1.1 mg/dL 0.7-1.5 [facility] ([facility]) Is patient fasting? Y Glucose 129 mg/dL 65-110 Above high normal [facility] ([facility]) Is patient fasting? Y BUN 15 mg/dL 7-21 [facility] ([facility]) Is patient fasting? Y Total Protein 6.6 g/dL 6.3-8.2 [facility] ([facility]) Is patient fasting? Y BUN/Creat 14 8-27 [facility] ([facility]) Is patient fasting? Y A/G Ratio 2.0 0.8-2.0 [facility] Is patient fasting? Y Globulin 2.2 GM/DL 2.4-3.2 Below low normal [facility] ( [facility]) Is patient fasting? Y Albumin 4.4 g/dL 3.9-5.0 [facility] ([facility]) Is patient fasting? Y Alkaline Phos 56 U/L 38-126 [facility] ([facility]) Is patient fasting? Y Calcium 9.8 mg/dL 8.4-10.2 [facility] ([facility]) Is patient fasting? Y Total Bili Laboratory test result 0.2-1.3 [facility] ([facility]) Is patient fasting? Y SGPT/Alt 17 U/L 7-56 [facility] ([facility]) Is patient fasting? Y Sgot/Ast 17 U/L 5-40 [facility] ([facility]) Is patient fasting? Y Anion Gap 6.0 mmol/L 8.0-16.0 Below low normal [facility] ( [facility]) Is patient fasting? Y Non-Aa GFR Laboratory test result [facility] ([facility]) Is patient fasting? Y Age 65 yrs [facility] ([facility]) Is patient fasting? Y Afr Amer GFR Laboratory test result [facility] ([facility]) Is patient fasting? Y ID Date Data Source [id number] 09/20/2020 08:15:00 AM EST [facility] ([facility]) Name Value Range Interpretation Code Description Data Jyoti rce(s) Supporting Document(s) WBC 6.0 10^3/uL 4.2-11.0 [facility] ([facility]) Is patient fasting? Y CBC W/Automated Diff Laboratory test result [facility] ([facility]) Is patient fasting? Y Hematocrit 48.6 % 41.0-51.0 [facility] ([facility]) Is patient fasting? Y Hemoglobin 15.9 g/dL 14.0-16.0 [facility] ([facility]) Is patient fasting? Y RBC 5.16 10^6/uL 4.50-6.30 [facility] ([facility]) Is patient fasting? Y MCH 30.8 pg 27.0-34.0 [facility] ([facility]) Is patient fasting? Y MCV 94.2 fL 80.0-94.0 Above high normal [facility] ([facility]) Is patient fasting? Y MCHC 32.7 g/dL 31.0-36.0 [facility] ([facility]) Is patient fasting? Y RDW 12.1 % 11.5-14.8 [facility] ([facility]) Is patient fasting? Y Platelets 272 10^3/uL 150-450 [facility] ([facility]) Is patient fasting? Y MPV 10.2 fL 7.4-10.4 [facility] ([facility]) Is patient fasting? Y Neut 49.1 % 37.0-80.0 [facility] ([facility]) Is patient fasting? Y Lymph 37.0 % 25.0-40.0 [facility] ([facility]) Is patient fasting? Y Baso 0.8 % 0.0-2.0 [facility] ([facility]) Is patient fasting? Y Eos 2.5 % 0.0-7.0 [facility] ([facility]) Is patient fasting? Y Tyrrell 10.3 % 3.0-8.0 Above high normal [facility] ([facility]) Is patient fasting? Y #Neut 2.96 10^3/uL 2.00-6.90 [facility] ([facility]) Is patient fasting? Y %NRBC 0.0 % 0.0-0.0 [facility] ([facility]) Is patient fasting? Y %Ig 0.3 % 0.0-0.0 Above high normal [facility] ([facility]) Is patient fasting? Y #Tyrrell 0.62 10^3/uL 0.00-0.90 [facility] ([facility]) Is patient fasting? Y #Lymph 2.23 10^3/uL 0.60-3.40 [facility] ([facility]) Is patient fasting? Y #Eos 0.15 10^3/uL 0.00-0.70 [facility] ([facility]) Is patient fasting? Y #Ig 0.02 10^3/uL 0.00-0.10 [facility] ([facility]) Is patient fasting? Y #Baso 0.05 10^3/uL 0.00-0.20 [facility] ([facility]) Is patient fasting? Y #NRBC 0.00 10^3/uL 0.00-0.00 [facility] ([facility]) Is patient fasting? Y Manual Diff Laboratory test result [facility] ([facility]) Is patient fasting? Y RBC Morph Laboratory test result [facility] ([facility]) Is patient fasting? Y ID Date Data Source [id number] 09/20/2020 06:03:00 PM EST [facility] Name Value Range Interpretation Code Description Data Jyoti rce(s) Supporting Document(s) Magnesium [Mass/volume] in Serum or Plasma 1.8 MG/DL 1.7 - 2.2 [facility] ID Date Data Source [id number] 09/20/2020 06:03:00 PM [facility] Name Value Range Interpretation Code Description Data Jyoti rce(s) Supporting Document(s) CVE PANEL [facility] LIPID PANEL Cholesterol [Mass/volume] in Serum or Plasma 175 MG/DL 131 - 200 [facility] Deprecated Triglyceride [Mass/volume] in Serum or Plasma 176 MG/DL 3 5 - 160 H [facility] HDL 41 MG/DL 29 - 86 [facility] Cholesterol in LDL [Mass/volume] in Serum or Plasma by Direc t assay 103 mg/dL 65 - 175 [facility] Cholesterol.total/Cholesterol in HDL [Mass Ratio] in Serum o r Plasma 4.3 3.4 - 4.9 [facility] LDL/HDL 2.51 1.00 - 3.55 [facility] ital CVE RISK CHOL/HDL LDL/HDLMEN: 1/2 AVERAGE 3.43 1.00 AVERAGE 4.97 3.55 2X AVERAGE 9.55 6.25 3X AVERAGE 23.99 7.99WOMEN: 1/2 AVERAGE 3.27 1.47 AVERAGE 4.44 3.22 2X AVERAGE 7.05 5.03 3X AVERAGE 11.04 6.14 ID Date Data Source [id number] 09/20/2020 06:03:00 PM EST [facility] Name Value Range Interpretation Code Description Data Jyoti rce(s) Supporting Document(s) COMPREHENSIVE METABOLIC PANEL [facility] COMPREHENSIVE METABOLIC PANEL Sodium [Moles/volume] in Serum or Plasma 142 mEq/L 134 - 153 [facility] Potassium [Moles/volume] in Serum or Plasma 4.5 mEq/L 3.6 - 5.0 [facility] Chloride [Moles/volume] in Serum or Plasma 104 mEq/L 98 - 107 [facility] Carbon dioxide, total [Moles/volume] in Serum or Plasma 32 MEQ/L 22 - 30 H [facility] Glucose [Mass/volume] in Serum or Plasma 129 MG/DL 65 - 110 H [facility] BUN 15 MG/DL 7 - 21 [facility] Creatinine [Mass/volume] in Serum or Plasma 1.1 MG/DL 0.7 - 1.5 [facility] BUN/CREAT 14 8 - 27 [facility] Protein [Mass/volume] in Serum or Plasma 6.6 G/DL 6.3 - 8.2 [facility] Albumin [Mass/volume] in Serum or Plasma 4.4 G/DL 3.9 - 5.0 [facility] Globulin [Mass/volume] in Serum by calculation 2.2 GM/DL 2.4 - 3.2 L [facility] A/G RATIO 2.0 0.8 - 2.0 [facility] Calcium [Mass/volume] in Serum or Plasma 9.8 MG/DL 8.4 - 10.2 [facility] Bilirubin.total [Mass/volume] in Serum or Plasma <0.7 MG/DL 0.2 - 1.3 [facility] Alkaline phosphatase [Enzymatic activity/volume] in Serum or Plasma 56 U/L 38 - 126 [facility] Aspartate aminotransferase [Enzymatic activity/volume] in Serum or Plasma 17 U/L 5 - 40 [facility] Alanine aminotransferase [Enzymatic activity/volume] in Seru m or Plasma 17 U/L 7 - 56 [facility] Anion gap 3 in Serum or Plasma 6.0 mmol/L 8.0 - 16.0 L [facility] AGE 65 yrs [facility] NON-AA GFR >60 mL/min [facility] AFR AMER GFR >60 mL/min [facility] Male GFR In terprentation 20-49 yrs >60 mL/min Normal 50-59 yrs >56 mL/min Normal 60-69 yrs >49 mL/min Normal 70-79yrs >42 mL/min Normal 80 and above >35 mL/min Normal Female GFR Interpretation 20-39 yrs >60 mL/min Normal 40-49 yrs >58 mL/min Normal 50-59 yrs >51 mL/min Normal 60-69 yrs >45 mL/min Normal 70-79 yrs >39 mL/min Normal 80 and above >32 mL/min Normal ID Date Data Source [id number] 09/20/2020 05:37:00 PM [facility] Name Value Range Interpretation Code Description Data Jyoti rce(s) Supporting Document(s) Prostate specific Ag [Mass/volume] in Serum or Plasma 2.33 ng/mL 0.00 - 4.00 [facility] \\BLDo\\PSA INTERPRETA TION\\BLDx\\ The PSA assay should not be used alone for a screening test or diagnosis for presence or absence of malignant disease. Predictions of disease recurrence should not be based solely on values obtained from serial patient serum values. The PSA result was determined by "[employer]", on the [employer] GI[employer]PPE 6000. Values obtained with different assay methods or kits cannot be used interchangeably. ID Date Data Source [id number] 09/20/2020 05:37:00 PM [facility] Name Value Range Interpretation Code Description Data Jyoti rce(s) Supporting Document(s) Calcidiol [Moles/volume] in Serum or Plasma 35 NG/ML [facility] VITAMIN-D(2 5HYDROXY) Deficiency: <=20 ng/ml Insufficiency: 21-29 ng/ml Preferred level: => 30 ng/ml ID Date Data Source [id number] 09/20/2020 05:37:00 PM EST [facility] Name Value Range Interpretation Code Description Data Jyoti rce(s) Supporting Document(s) Thyrotropin [Units/volume] in Serum or Plasma by Detec tion limit <= 0.05 mIU/L 0.77 uIU/mL 0.47 - 5.01 [facility] ID Date Data Source [id number] 09/20/2020 05:03:00 PM EST [facility] Name Value Range Interpretation Code Description Data Jyoti rce(s) Supporting Document(s) CBC W/AUTOMATED DIFF [facility] COMPLETE BLOOD COUNT Leukocytes [#/volume] in Blood by Automated count 6.0 10^3/uL 4.2 - 1 1.0 [facility] Erythrocytes [#/volume] in Blood by Automated count 5.16 10^6/uL 4. 50 - 6.30 [facility] Hemoglobin [Mass/volume] in Blood 15.9 g/dL 14.0 - 16.0 [facility] Hematocrit [Volume Fraction] of Blood by Automated count 48.6 % 4 1.0 - 51.0 [facility] Erythrocyte mean corpuscular volume [Entitic volume] by Auto mated count 94.2 fL 80.0 - 94.0 H [facility] Erythrocyte mean corpuscular hemoglobin [Entitic mass] by Automated count 30.8 pg 27.0 - 34.0 [facility] Erythrocyte mean corpuscular hemoglobin concentration [Mass/volume] by Automated count 32.7 g/dL 31.0 - 36.0 [facility] Erythrocyte distribution width [Ratio] by Automated count 12.1 % 11.5 - 14.8 [facility] Platelets [#/volume] in Blood by Automated count 272 10^3/uL 150 - 45 0 [facility] Platelet mean volume [Entitic volume] in Blood by Automated count 10.2 fL 7.4 - 10.4 [facility] Neutrophils/100 leukocytes in Blood by Automated count 49.1 % 37. 0 - 80.0 [facility] Lymphocytes/100 leukocytes in Blood by Manual count 37.0 % 25.0 - 40.0 [facility] Monocytes/100 leukocytes in Blood by Automated count 10.3 % 3.0 - 8.0 H [facility] Eosinophils/100 leukocytes in Blood by Automated count 2.5 % 0.0 - 7.0 [facility] Basophils/100 leukocytes in Blood by Automated count 0.8 % 0.0 - 2.0 [facility] %IG 0.3 % 0.0 - 0.0 H [facility] %NRBC 0.0 % 0.0 - 0.0 [facility] al Neutrophils [#/volume] in Blood by Automated count 2.96 10^3/uL 2.00 - 6.90 [facility] Lymphocytes [#/volume] in Blood by Automated count 2.23 10^3/uL 0.60 - 3.40 [facility] Monocytes [#/volume] in Blood by Automated count 0.62 10^3/uL 0.00 - 0.90 [facility] Eosinophils [#/volume] in Blood by Automated count 0.15 10^3/uL 0.00 - 0.70 [facility] Basophils [#/volume] in Blood by Automated count 0.05 10^3/uL 0.00 - 0.20 [facility] #IG 0.02 10^3/uL 0.00 - 0.10 [facility] ospital #NRBC 0.00 10^3/uL 0.00 - 0.00 [facility] ospital MANUAL DIFF NOT INDICATED [facility] RBC MORPH NOT INDICATED [facility] spital ID Date Data Source [id number] 09/20/2020 04:54:00 PM EST [facility] Name Value Range Interpretation Code Description Data Jyoti e(s) Supporting Document(s) Hemoglobin A1c/Hemoglobin.total in Blood 7.2 % 4.4 - 6.1 H [facility] {A1]{HB] ID Date Data Source [id number] 07/21/2020 07:09:00 AM EDT [facility] ([facility]) Name Value Range Interpretation Code Description Data Jyoti rce(s) Supporting Document(s) Creatinine 1.1 mg/dL 0.7-1.5 [facility] ([facility]) Age 65 yrs [facility] ([facility]) Non-Aa GFR Laboratory test result [facility] ([facility]) Afr Amer GFR Laboratory test result [facility] ([facility]) Male GFR Interprentation 20-49 yrs >60 mL/min Normal 50-59 yrs >56 mL/min Normal 60-69 yrs >49 mL/min Normal 70-79yrs >42 mL/min Normal 80 and above >35 mL/min Normal Female GFR Interpretation 20-39 yrs >60 mL/min Normal 40-49 yrs >58 mL/min Normal 50-59 yrs >51 mL/min Normal 60-69 yrs >45 mL/min Normal 70-79 yrs >39 mL/min Normal 80 and above >32 mL/min Normal ID Date Data Source [id number] 07/21/2020 07:09:00 AM EDT [facility] ([facility]) Name Value Range Interpretation Code Description Data Jyoti rce(s) Supporting Document(s) Creatinine [Mass/volume] in Serum or Plasma Laboratory test result [facility] ([facility]) Urea nitrogen [Mass/volume] in Serum or Plasma 17 mg/dL 7-21 [facility] ([facility]) ID Date Data Source [id number] 07/21/2020 08:27:00 PM EDT [facility] Name Value Range Interpretation Code Description Data Jyoti rce(s) Supporting Document(s) Creatinine [Mass/volume] in Serum or Plasma 1.1 MG/DL 0.7 - 1.5 [facility] AGE 65 yrs [facility] NON-AA GFR >60 mL/min [facility] AFR AMER GFR >60 mL/min [facility] Male GFR Interprenta tion 20-49 yrs >60 mL/min Normal 50-59 yrs >56 mL/min Normal 60-69 yrs >49 mL/min Normal 70-79yrs >42 mL/min Normal 80 and above >35 mL/min Normal Female GFR Interpretation 20-39 yrs >60 mL/min Normal 40-49 yrs >58 mL/min Normal 50-59 yrs >51 mL/min Normal 60-69 yrs >45 mL/min Normal 70-79 yrs >39 mL/min Normal 80 and above >32 mL/min Normal ID Date Data Source [id number] 07/21/2020 08:27:00 PM EDT [facility] Name Value Range Interpretation Code Description Data Jyoti rce(s) Supporting Document(s) BUN 17 MG/DL 7 - 21 [facility] ID Date Data Source [id number] 06/13/2020 08:01:00 AM EDT [facility] ([facility]) Name Value Range Interpretation Code Description Data Jyoti rce(s) Supporting Document(s) Thyrotropin [Units/volume] in Serum or Plasma 0.38 uIU/mL 0. 47-5.01 Below low normal [facility] ([facility]) Is patient fasting? N Hemoglobin A1c/Hemoglobin.total in Blood 7.5 % 4.4-6.1 Above high normal [facility] ([facility]) Is patient fasting? N Magnesium [Mass/volume] in Serum or Plasma 1.8 mg/dL 1.7-2.2 [facility] ([facility]) Is patient fasting? N ID Date Data Source [id number] 06/13/2020 08:01:00 AM EDT [facility] ([facility]) Name Value Range Interpretation Code Description Data Jyoti rce(s) Supporting Document(s) Cholesterol 158 mg/dL 131-200 [facility] ([facility]) Is patient fasting? N Cve Panel Laboratory test result [facility] ([facility]) Is patient fasting? N HDL 45 mg/dL 29-86 [facility] ([facility]) Is patient fasting? N Triglycerides 107 mg/dL 35-160 [facility] ([facility]) Is patient fasting? N LDL 93 mg/dL 65-175 [facility] ([facility]) Is patient fasting? N LDL/HDL 2.07 1.00-3.55 [facility] ([facility]) Is patient fasting? N Risk Factor 3.5 3.4-4.9 [facility] ([facility]) Is patient fasting? N ID Date Data Source [id number] 06/13/2020 08:01:00 AM EDT [facility] ([facility]) Name Value Range Interpretation Code Description Data Jyoti rce(s) Supporting Document(s) Comprehensive Metabo Laboratory test result [facility] ([facility]) Is patient fasting? N Chloride 102 meq/L 98-107 [facility] ([facility]) Is patient fasting? N Sodium 139 meq/L 134-153 [facility] ([facility]) Is patient fasting? N Potassium 4.8 meq/L 3.6-5.0 [facility] ([facility]) Is patient fasting? N Glucose 122 mg/dL 65-110 Above high normal [facility] ([facility]) Is patient fasting? N Co2 24 meq/L 22-30 [facility] ([facility]) Is patient fasting? N BUN 45 mg/dL 7-21 Above high normal [facility] ([facility]) Is patient fasting? N BUN/Creat 20 8-27 [facility] ([facility]) Is patient fasting? N Total Protein 7.3 g/dL 6.3-8.2 [facility] ([facility]) Is patient fasting? N Creatinine 2.2 mg/dL 0.7-1.5 Above high normal [facility] ([facility]) Is patient fasting? N A/G Ratio 1.9 0.8-2.0 [facility] ([facility]) Is patient fasting? N Albumin 4.8 g/dL 3.9-5.0 [facility]) Is patient fasting? N Globulin 2.5 GM/DL 2.4-3.2 [facility] ([facility]) Is patient fasting? N Alkaline Phos 57 U/L 38-126 [facility] ([facility]) Is patient fasting? N Calcium 10.0 mg/dL 8.4-10.2 [facility] ([facility]) Is patient fasting? N Total Bili Laboratory test result 0.2-1.3 [facility] ([facility]) Is patient fasting? N Anion Gap 13.0 mmol/L 8.0-16.0 [facility] ([facility]) Is patient fasting? N Sgot/Ast 23 U/L 5-40 [facility] ([facility]) Is patient fasting? N SGPT/Alt 19 U/L 7-56 [facility] ([facility]) Is patient fasting? N Afr Amer GFR 39 mL/min [facility] ([facility]) Is patient fasting? N Non-Aa GFR 32 mL/min [facility] ([facility]) Is patient fasting? N Age 65 yrs [facility] ([facility]) Is patient fasting? N ID Date Data Source [id number] 06/13/2020 08:01:00 AM EDT [facility] ([facility]) Name Value Range Interpretation Code Description Data Jyoti rce(s) Supporting Document(s) CBC W/Automated Diff Laboratory test result [facility] ([facility]) Is patient fasting? N WBC 5.9 10^3/uL 4.2-11.0 [facility] ([facility]) Is patient fasting? N RBC 4.38 10^6/uL 4.50-6.30 Below low normal [facility] ([facility]) Is patient fasting? N Hemoglobin 13.4 g/dL 14.0-16.0 Below low normal [facility] ( [facility]) Is patient fasting? N MCH 30.6 pg 27.0-34.0 [facility] ([facility]) Is patient fasting? N Hematocrit 42.3 % 41.0-51.0 [facility] ([facility]) Is patient fasting? N MCV 96.6 fL 80.0-94.0 Above high normal [facility] ([facility]) Is patient fasting? N MCHC 31.7 g/dL 31.0-36.0 [facility] ([facility]) Is patient fasting? N Platelets 285 10^3/uL 150-450 [facility] ([facility]) Is patient fasting? N RDW 12.9 % 11.5-14.8 [facility] ([facility]) Is patient fasting? N MPV 10.8 fL 7.4-10.4 Above high normal [facility] ([facility]) Is patient fasting? N Lymph 33.3 % 25.0-40.0 [facility] ([facility]) Is patient fasting? N Neut 50.7 % 37.0-80.0 [facility] ([facility]) Is patient fasting? N %Ig 0.3 % 0.0-0.0 Above high normal [facility] ([facility]) Is patient fasting? N Baso 0.5 % 0.0-2.0 [facility] ([facility]) Is patient fasting? N Eos 2.2 % 0.0-7.0 [facility] ([facility]) Is patient fasting? N Tyrrell 13.0 % 3.0-8.0 Above high normal [facility] ([facility]) Is patient fasting? N %NRBC 0.0 % 0.0-0.0 [facility] ([facility]) Is patient fasting? N #Neut 2.99 10^3/uL 2.00-6.90 [facility] ([facility]) Is patient fasting? N #Eos 0.13 10^3/uL 0.00-0.70 [facility] ([facility]) Is patient fasting? N #Baso 0.03 10^3/uL 0.00-0.20 [facility] ([facility]) Is patient fasting? N #Tyrrell 0.77 10^3/uL 0.00-0.90 [facility] ([facility]) Is patient fasting? N #Lymph 1.97 10^3/uL 0.60-3.40 [facility] ([facility]) Is patient fasting? N #NRBC 0.00 10^3/uL 0.00-0.00 [facility] ([facility]) Is patient fasting? N #Ig 0.02 10^3/uL 0.00-0.10 [facility] ([facility]) Is patient fasting? N Manual Diff Laboratory test result [facility] ([facility]) Is patient fasting? N RBC Morph Laboratory test result [facility] ([facility]) Is patient fasting? N ID Date Data Source [id number] 06/13/2020 07:58:00 PM EDT [facility] Name Value Range Interpretation Code Description Data Jyoti rce(s) Supporting Document(s) CBC W/AUTOMATED DIFF [facility] COMPLETE BLOOD COUNT Leukocytes [#/volume] in Blood by Automated count 5.9 10^3/uL 4.2 - 1 1.0 [facility] Erythrocytes [#/volume] in Blood by Automated count 4.38 10^6/uL 4. 50 - 6.30 L [facility] Hemoglobin [Mass/volume] in Blood 13.4 g/dL 14.0 - 16.0 L [facility] Hematocrit [Volume Fraction] of Blood by Automated count 42.3 % 4 1.0 - 51.0 [facility] Erythrocyte mean corpuscular volume [Entitic volume] by Auto mated count 96.6 fL 80.0 - 94.0 H [facility] Erythrocyte mean corpuscular hemoglobin [Entitic mass] by Automated count 30.6 pg 27.0 - 34.0 [facility] Erythrocyte mean corpuscular hemoglobin concentration [Mass/volume] by Automated count 31.7 g/dL 31.0 - 36.0 [facility] Erythrocyte distribution width [Ratio] by Automated count 12.9 % 11.5 - 14.8 [facility] Platelets [#/volume] in Blood by Automated count 285 10^3/uL 150 - 45 0 [facility] Platelet mean volume [Entitic volume] in Blood by Automated count 10.8 fL 7.4 - 10.4 H [facility] Neutrophils/100 leukocytes in Blood by Automated count 50.7 % 37. 0 - 80.0 [facility] Lymphocytes/100 leukocytes in Blood by Manual count 33.3 % 25.0 - 40.0 [facility] Monocytes/100 leukocytes in Blood by Automated count 13.0 % 3.0 - 8.0 H [facility] Eosinophils/100 leukocytes in Blood by Automated count 2.2 % 0.0 - 7.0 [facility] Basophils/100 leukocytes in Blood by Automated count 0.5 % 0.0 - 2.0 [facility] %IG 0.3 % 0.0 - 0.0 [facility].0 % 0.0 - 0.0 [facility] al Neutrophils [#/volume] in Blood by Automated count 2.99 10^3/uL 2.00 - 6.90 [facility] Lymphocytes [#/volume] in Blood by Automated count 1.97 10^3/uL 0.60 - 3.40 [facility] Monocytes [#/volume] in Blood by Automated count 0.77 10^3/uL 0.00 - 0.90 [facility] Eosinophils [#/volume] in Blood by Automated count 0.13 10^3/uL 0.00 - 0.70 [facility] Basophils [#/volume] in Blood by Automated count 0.03 10^3/uL 0.00 - 0.20 [facility] #IG 0.02 10^3/uL 0.00 - 0.10 [facility] ospital #NRBC 0.00 10^3/uL 0.00 - 0.00 [facility] MANUAL DIFF NOT INDICATED [facility] RBC MORPH NOT INDICATED [facility] spital ID Date Data Source [id number] 06/13/2020 07:57:00 PM EDT [facility] Name Value Range Interpretation Code Description Data Jyoti rce(s) Supporting Document(s) Thyrotropin [Units/volume] in Serum or Plasma by Detec tion limit <= 0.05 mIU/L 0.38 uIU/mL 0.47 - 5.01 L [facility] ID Date Data Source [id number] 06/13/2020 07:56:00 PM EDT [facility] Name Value Range Interpretation Code Description Data Jyoti rce(s) Supporting Document(s) COMPREHENSIVE METABOLIC PANEL [facility] COMPREHENSIVE METABOLIC PANEL Sodium [Moles/volume] in Serum or Plasma 139 mEq/L 134 - 153 [facility] Potassium [Moles/volume] in Serum or Plasma 4.8 mEq/L 3.6 - 5.0 [facility] Chloride [Moles/volume] in Serum or Plasma 102 mEq/L 98 - 107 [facility] Carbon dioxide, total [Moles/volume] in Serum or Plasma 24 MEQ/L 22 - 30 [facility] Glucose [Mass/volume] in Serum or Plasma 122 MG/DL 65 - 110 H [facility] BUN 45 MG/DL 7 - 21 [facility] Creatinine [Mass/volume] in Serum or Plasma 2.2 MG/DL 0.7 - 1.5 H [facility] BUN/CREAT 20 8 - 27 [facility] al Protein [Mass/volume] in Serum or Plasma 7.3 G/DL 6.3 - 8.2 [facility] Albumin [Mass/volume] in Serum or Plasma 4.8 G/DL 3.9 - 5.0 [facility] Globulin [Mass/volume] in Serum by calculation 2.5 GM/DL 2.4 - 3.2 [facility] A/G RATIO 1.9 0.8 - 2.0 [facility] Calcium [Mass/volume] in Serum or Plasma 10.0 MG/DL 8.4 - 10.2 [facility] Bilirubin.total [Mass/volume] in Serum or Plasma <0.7 MG/DL 0.2 - 1.3 [facility] Alkaline phosphatase [Enzymatic activity/volume] in Serum or Plasma 57 U/L 38 - 126 [facility] Aspartate aminotransferase [Enzymatic activity/volume] in Serum or Plasma 23 U/L 5 - 40 [facility] Alanine aminotransferase [Enzymatic activity/volume] in Seru m or Plasma 19 U/L 7 - 56 [facility] Anion gap 3 in Serum or Plasma 13.0 mmol/L 8.0 - 16.0 [facility] AGE [address] [facility] al NON-AA GFR 32 mL/min [facility] AFR AMER GFR 39 mL/min [facility] Male GFR In terprentation 20-49 yrs >60 mL/min Normal 50-59 yrs >56 mL/min Normal 60-69 yrs >49 mL/min Normal 70-79yrs >42 mL/min Normal 80 and above >35 mL/min Normal Female GFR Interpretation 20-39 yrs >60 mL/min Normal 40-49 yrs >58 mL/min Normal 50-59 yrs >51 mL/min Normal 60-69 yrs >45 mL/min Normal 70-79 yrs >39 mL/min Normal 80 and above >32 mL/min Normal ID Date Data Source [id number] 06/13/2020 07:39:00 PM EDT [facility] Name Value Range Interpretation Code Description Data Jyoti rce(s) Supporting Document(s) Magnesium [Mass/volume] in Serum or Plasma 1.8 MG/DL 1.7 - 2.2 [facility] ID Date Data Source [id number] 06/13/2020 07:39:00 PM EDT [facility] Name Value Range Interpretation Code Description Data Jyoti rce(s) Supporting Document(s) CVE PANEL [facility] al LIPID PANEL Cholesterol [Mass/volume] in Serum or Plasma 158 MG/DL 131 - 200 [facility] Deprecated Triglyceride [Mass/volume] in Serum or Plasma 107 MG/DL 3 5 - 160 [facility] HDL 45 MG/DL 29 - 86 [facility] Cholesterol in LDL [Mass/volume] in Serum or Plasma by Direc t assay 93 mg/dL 65 - 175 [facility] Cholesterol.total/Cholesterol in HDL [Mass Ratio] in Serum o r Plasma 3.5 3.4 - 4.9 [facility] LDL/HDL 2.07 1.00 - 3.55 [facility] CVE RISK CHOL/HDL LDL/HDLMEN: 1/2 AVERAGE 3.43 1.00 AVERAGE 4.97 3.55 2X AVERAGE 9.55 6.25 3X AVERAGE 23.99 7.99WOMEN: 1/2 AVERAGE 3.27 1.47 AVERAGE 4.44 3.22 2X AVERAGE 7.05 5.03 3X AVERAGE 11.04 6.14 ID Date Data Source [id number] 06/13/2020 07:38:00 PM EDT [facility] Name Value Range Interpretation Code Description Data Jyoti rce(s) Supporting Document(s) Hemoglobin A1c/Hemoglobin.total in Blood 7.5 % 4.4 - 6.1 H [facility] {A1]{HB] ID Date Data Source [id number] 03/17/2020 07:09:00 AM EDT [facility] ([facility]) Name Value Range Interpretation Code Description Data Jyoti rce(s) Supporting Document(s) Thyrotropin [Units/volume] in Serum or Plasma 1.94 uIU/mL 0.47-5.01 [facility] ([facility]) Is patient fasting? N Hemoglobin A1c/Hemoglobin.total in Blood 10.0 % 4.4-6.1 Above high normal [facility] ([facility]) {A1] {HB] Magnesium [Mass/volume] in Serum or Plasma 2.0 mg/dL 1.7-2.2 [facility] ([facility]) Is patient fasting? N ID Date Data Source [id number] 03/17/2020 07:09:00 AM EDT [facility] ([facility]) Name Value Range Interpretation Code Description Data Jyoti rce(s) Supporting Document(s) Cve Panel Laboratory test result [facility] ([facility]) LIPID PANEL Cholesterol 167 mg/dL 131-200 [facility] ([facility]) Is patient fasting? N Triglycerides 176 mg/dL 35-160 Above high normal [facility] ([facility]) Is patient fasting? N HDL 41 mg/dL 29-86 [facility] ([facility]) Is patient fasting? N LDL 96 mg/dL 65-175 [facility] ([facility]) Is patient fasting? N Risk Factor 4.1 3.4-4.9 [facility] ([facility]) Is patient fasting? N LDL/HDL 2.34 1.00-3.55 [facility] ([facility]) CVE RISK CHOL/HDL LDL/HDL MEN: 1/2 AVERAGE 3.43 1.00 AVERAGE 4.97 3.55 2X AVERAGE 9.55 6.25 3X AVERAGE 23.99 7.99 WOMEN: 1/2 AVERAGE 3.27 1.47 AVERAGE 4.44 3.22 2X AVERAGE 7.05 5.03 3X AVERAGE 11.04 6.14 ID Date Data Source [id number] 03/17/2020 07:09:00 AM EDT [facility] ([facility]) Name Value Range Interpretation Code Description Data Jyoti rce(s) Supporting Document(s) Comprehensive Metabo Laboratory test result [facility] ([facility]) COMPREHENSIVE METABOLIC PANEL Potassium 4.8 meq/L 3.6-5.0 [facility] ([facility]) Is patient fasting? N Sodium 141 meq/L 134-153 [facility] ([facility]) Is patient fasting? N Chloride 102 meq/L 98-107 [facility] ([facility]) Is patient fasting? N Co2 26 meq/L 22-30 [facility] ([facility]) Is patient fasting? N Glucose 262 mg/dL 65-110 Above high normal [facility] ([facility]) Is patient fasting? N BUN 24 mg/dL 7-21 Above high normal [facility] ([facility]) Is patient fasting? N Creatinine 1.1 mg/dL 0.7-1.5 [facility] ([facility]) Is patient fasting? N BUN/Creat 22 8-27 [facility] ([facility]) Is patient fasting? N Albumin 4.4 g/dL 3.9-5.0 [facility] Is patient fasting? N Total Protein 6.6 g/dL 6.3-8.2 [facility] ([facility]) Is patient fasting? N Globulin 2.2 GM/DL 2.4-3.2 Below low normal [facility] ( [facility]) Is patient fasting? N A/G Ratio 2.0 0.8-2.0 [facility] ([facility]) Is patient fasting? N Calcium 9.6 mg/dL 8.4-10.2 [facility] ([facility]) Is patient fasting? N Total Bili Laboratory test result 0.2-1.3 [facility] ([facility]) Is patient fasting? N Alkaline Phos 58 U/L 38-126 [facility] ([facility]) Is patient fasting? N Sgot/Ast 24 U/L 5-40 [facility] ([facility]) Is patient fasting? N SGPT/Alt 24 U/L 7-56 [facility] ([facility]) Is patient fasting? N Age 65 yrs [facility] ([facility]) Is patient fasting? N Anion Gap 13.0 mmol/L 8.0-16.0 [facility] ([facility]) Is patient fasting? N Non-Aa GFR Laboratory test result [facility] ([facility]) Is patient fasting? N Afr Amer GFR Laboratory test result [facility] ([facility]) Male GFR Interprentation 20-49 yrs >60 mL/min Normal 50-59 yrs >56 mL/min Normal 60-69 yrs >49 mL/min Normal 70-79yrs >42 mL/min Normal 80 and above >35 mL/min Normal Female GFR Interpretation 20-39 yrs >60 mL/min Normal 40-49 yrs >58 mL/min Normal 50-59 yrs >51 mL/min Normal 60-69 yrs >45 mL/min Normal 70-79 yrs >39 mL/min Normal 80 and above >32 mL/min Normal ID Date Data Source [id number] 03/17/2020 07:09:00 AM EDT [facility] ([facility]) Name Value Range Interpretation Code Description Data Jyoti rce(s) Supporting Document(s) CBC W/Automated Diff Laboratory test result [facility] ([facility]) COMPLETE BLOOD COUNT WBC 5.4 10^3/uL 4.2-11.0 [facility] ([facility]) Is patient fasting? N RBC 4.77 10^6/uL 4.50-6.30 [facility] ([facility]) Is patient fasting? N Hemoglobin 14.8 g/dL 14.0-16.0 [facility] ([facility]) Is patient fasting? N Hematocrit 46.1 % 41.0-51.0 [facility] ([facility]) Is patient fasting? N MCV 96.6 fL 80.0-94.0 Above high normal [facility] ([facility]) Is patient fasting? N MCH 31.0 pg 27.0-34.0 [facility] ([facility]) Is patient fasting? N MCHC 32.1 g/dL 31.0-36.0 [facility] ([facility]) Is patient fasting? N RDW 12.8 % 11.5-14.8 [facility] ([facility]) Is patient fasting? N MPV 10.6 fL 7.4-10.4 Above high normal [facility] ([facility]) Is patient fasting? N Platelets 265 10^3/uL 150-450 [facility] ([facility]) Is patient fasting? N Neut 44.2 % 37.0-80.0 [facility] ([facility]) Is patient fasting? N Lymph 38.6 % 25.0-40.0 [facility] ([facility]) Is patient fasting? N Eos 2.4 % 0.0-7.0 [facility] ([facility]) Is patient fasting? N Tyrrell 13.7 % 3.0-8.0 Above high normal [facility] ([facility]) Is patient fasting? N Baso 0.9 % 0.0-2.0 [facility] ([facility]) Is patient fasting? N %Ig 0.2 % 0.0-0.0 Above high normal [facility] ([facility]) Is patient fasting? N %NRBC 0.0 % 0.0-0.0 [facility] ([facility]) Is patient fasting? N #Neut 2.40 10^3/uL 2.00-6.90 [facility] ([facility]) Is patient fasting? N #Lymph 2.09 10^3/uL 0.60-3.40 [facility] ([facility]) Is patient fasting? N #Tyrrell 0.74 10^3/uL 0.00-0.90 [facility] ([facility]) Is patient fasting? N #Eos 0.13 10^3/uL 0.00-0.70 [facility] ([facility]) Is patient fasting? N #Baso 0.05 10^3/uL 0.00-0.20 [facility] ([facility]) Is patient fasting? N #Ig 0.01 10^3/uL 0.00-0.10 [facility] ([facility]) Is patient fasting? N #NRBC 0.00 10^3/uL 0.00-0.00 [facility] ([facility]) Is patient fasting? N Manual Diff Laboratory test result M [facility] ([facility]) Is patient fasting? N RBC Morph Laboratory test result [facility] ([facility]) Is patient fasting? N ID Date Data Source [id number] 03/17/2020 09:50:00 PM EDT [facility] Name Value Range Interpretation Code Description Data Jyoti rce(s) Supporting Document(s) Thyrotropin [Units/volume] in Serum or Plasma by Detec tion limit <= 0.05 mIU/L 1.94 uIU/mL 0.47 - 5.01 [facility] ID Date Data Source [id number] 03/17/2020 09:40:00 PM EDT [facility] Name Value Range Interpretation Code Description Data Jyoti rce(s) Supporting Document(s) Magnesium [Mass/volume] in Serum or Plasma 2.0 MG/DL 1.7 - 2.2 [facility] ID Date Data Source [id number] 03/17/2020 09:40:00 PM EDT [facility] Name Value Range Interpretation Code Description Data Jyoti rce(s) Supporting Document(s) [facility] Cholesterol [Mass/volume] in Serum or Plasma 167 MG/DL 131 - 200 [facility] Deprecated Triglyceride [Mass/volume] in Serum or Plasma 176 MG/DL 3 5 - 160 H [facility] HDL 41 MG/DL 29 - 86 [facility] al Cholesterol in LDL [Mass/volume] in Serum or Plasma by Direc t assay 96 mg/dL 65 - 175 [facility] Cholesterol.total/Cholesterol in HDL [Mass Ratio] in Serum o r Plasma 4.1 3.4 - 4.9 [facility] LDL/HDL 2.34 1.00 - 3.55 [facility] ital CVE RISK CHOL/HDL LDL/HDLMEN: 1/2 AVERAGE 3.43 1.00 AVERAGE 4.97 3.55 2X AVERAGE 9.55 6.25 3X AVERAGE 23.99 7.99WOMEN: 1/2 AVERAGE 3.27 1.47 AVERAGE 4.44 3.22 2X AVERAGE 7.05 5.03 3X AVERAGE 11.04 6.14 ID Date Data Source [id number] 03/17/2020 09:40:00 PM EDT [facility] Name Value Range Interpretation Code Description Data Jyoti rce(s) Supporting Document(s) COMPREHENSIVE METABOLIC PANEL [facility] COMPREHENSIVE METABOLIC PANEL Sodium [Moles/volume] in Serum or Plasma 141 mEq/L 134 - 153 [facility] Potassium [Moles/volume] in Serum or Plasma 4.8 mEq/L 3.6 - 5.0 [facility] Chloride [Moles/volume] in Serum or Plasma 102 mEq/L 98 - 107 [facility] Carbon dioxide, total [Moles/volume] in Serum or Plasma 26 MEQ/L 22 - 30 [facility] Glucose [Mass/volume] in Serum or Plasma 262 MG/DL 65 - 110 H [facility] BUN 24 MG/DL 7 - 21 H [facility] Creatinine [Mass/volume] in Serum or Plasma 1.1 MG/DL 0.7 - 1.5 [facility] BUN/CREAT 22 8 - 27 [facility] al Protein [Mass/volume] in Serum or Plasma 6.6 G/DL 6.3 - 8.2 [facility] Albumin [Mass/volume] in Serum or Plasma 4.4 G/DL 3.9 - 5.0 [facility] Globulin [Mass/volume] in Serum by calculation 2.2 GM/DL 2.4 - 3.2 L [facility] A/G RATIO 2.0 0.8 - 2.0 [facility] Calcium [Mass/volume] in Serum or Plasma 9.6 MG/DL 8.4 - 10.2 [facility] Bilirubin.total [Mass/volume] in Serum or Plasma <0.7 MG/DL 0.2 - 1.3 [facility] Alkaline phosphatase [Enzymatic activity/volume] in Serum or Plasma 58 U/L 38 - 126 [facility] Aspartate aminotransferase [Enzymatic activity/volume] in Serum or Plasma 24 U/L 5 - 40 [facility] Alanine aminotransferase [Enzymatic activity/volume] in Seru m or Plasma 24 U/L 7 - 56 [facility] Anion gap 3 in Serum or Plasma 13.0 mmol/L 8.0 - 16.0 [facility] AGE [address] [facility] al NON-AA GFR >60 mL/min [facility] ital AFR AMER GFR >60 mL/min [facility] Male GFR In terprentation 20-49 yrs >60 mL/min Normal 50-59 yrs >56 mL/min Normal 60-69 yrs >49 mL/min Normal 70-79yrs >42 mL/min Normal 80 and above >35 mL/min Normal Female GFR Interpretation 20-39 yrs >60 mL/min Normal 40-49 yrs >58 mL/min Normal 50-59 yrs >51 mL/min Normal 60-69 yrs >45 mL/min Normal 70-79 yrs >39 mL/min Normal 80 and above >32 mL/min Normal ID Date Data Source [id number] 03/17/2020 08:04:00 PM EDT [facility] Name Value Range Interpretation Code Description Data Jyoti rce(s) Supporting Document(s) CBC W/AUTOMATED DIFF [facility] COMPLETE BLOOD COUNT Leukocytes [#/volume] in Blood by Automated count 5.4 10^3/uL 4.2 - 1 1.0 [facility] Erythrocytes [#/volume] in Blood by Automated count 4.77 10^6/uL 4. 50 - 6.30 [facility] Hemoglobin [Mass/volume] in Blood 14.8 g/dL 14.0 - 16.0 [facility] Hematocrit [Volume Fraction] of Blood by Automated count 46.1 % 4 1.0 - 51.0 [facility] Erythrocyte mean corpuscular volume [Entitic volume] by Auto mated count 96.6 fL 80.0 - 94.0 H [facility] Erythrocyte mean corpuscular hemoglobin [Entitic mass] by Automated count 31.0 pg 27.0 - 34.0 [facility] Erythrocyte mean corpuscular hemoglobin concentration [Mass/volume] by Automated count 32.1 g/dL 31.0 - 36.0 [facility] Erythrocyte distribution width [Ratio] by Automated count 12.8 % 11.5 - 14.8 [facility] Platelets [#/volume] in Blood by Automated count 265 10^3/uL 150 - 45 0 [facility] Platelet mean volume [Entitic volume] in Blood by Automated count 10.6 fL 7.4 - 10.4 H [facility] Neutrophils/100 leukocytes in Blood by Automated count 44.2 % 37. 0 - 80.0 [facility] Lymphocytes/100 leukocytes in Blood by Manual count 38.6 % 25.0 - 40.0 [facility] Monocytes/100 leukocytes in Blood by Automated count 13.7 % 3.0 - 8.0 H [facility] Eosinophils/100 leukocytes in Blood by Automated count 2.4 % 0.0 - 7.0 [facility] Basophils/100 leukocytes in Blood by Automated count 0.9 % 0.0 - 2.0 [facility] %IG 0.2 % 0.0 - 0.0 [facility] %NRBC 0.0 % 0.0 - 0.0 [facility] al Neutrophils [#/volume] in Blood by Automated count 2.40 10^3/uL 2.00 - 6.90 [facility] Lymphocytes [#/volume] in Blood by Automated count 2.09 10^3/uL 0.60 - 3.40 [facility] Monocytes [#/volume] in Blood by Automated count 0.74 10^3/uL 0.00 - 0.90 [facility] Eosinophils [#/volume] in Blood by Automated count 0.13 10^3/uL 0.00 - 0.70 [facility] Basophils [#/volume] in Blood by Automated count 0.05 10^3/uL 0.00 - 0.20 [facility] #IG 0.01 10^3/uL 0.00 - 0.10 [facility] ospital #NRBC 0.00 10^3/uL 0.00 - 0.00 [facility] ospital MANUAL DIFF NOT INDICATED [facility] RBC MORPH NOT INDICATED [facility] spital ID Date Data Source [id number] 03/17/2020 07:47:00 PM EDT [facility] Name Value Range Interpretation Code Description Data Jyoti rce(s) Supporting Document(s) Hemoglobin A1c/Hemoglobin.total in Blood 10.0 % 4.4 - 6.1 H [facility] {A1]{HB] ID Date Data Source [id number] 12/15/2019 08:04:00 AM EST [facility] ([facility]) Name Value Range Interpretation Code Description Data Jyoti rce(s) Supporting Document(s) Thyrotropin [Units/volume] in Serum or Plasma 8.11 uIU/mL 0. 47-5.01 Above high normal [facility] ([facility]) Is patient fasting? N Hemoglobin A1c/Hemoglobin.total in Blood 8.2 % 4.4-6.1 Above high normal [facility] ([facility]) {A1] {HB] Magnesium [Mass/volume] in Serum or Plasma 1.9 mg/dL 1.7-2.2 [facility] ([facility]) Is patient fasting? N ID Date Data Source [id number] 12/15/2019 08:04:00 AM EST [facility] ([facility]) Name Value Range Interpretation Code Description Data Jyoti rce(s) Supporting Document(s) Cholesterol 246 mg/dL 131-200 Above high normal [facility] ([facility]) Is patient fasting? N Cve Panel Laboratory test result [facility] ([facility]) LIPID PANEL HDL 40 mg/dL 29-86 [facility] ([facility]) Is patient fasting? N LDL 157 mg/dL 65-175 [facility] ([facility]) Is patient fasting? N Triglycerides 316 mg/dL 35-160 Above high normal [facility] NT ([facility]) Is patient fasting? N Risk Factor 6.2 3.4-4.9 Above high normal [facility] ([facility]) Is patient fasting? N LDL/HDL 3.93 1.00-3.55 Above high normal [facility] ([facility]) CVE RISK CHOL/HDL LDL/HDL MEN: 1/2 AVERAGE 3.43 1.00 AVERAGE 4.97 3.55 2X AVERAGE 9.55 6.25 3X AVERAGE 23.99 7.99 WOMEN: 1/2 AVERAGE 3.27 1.47 AVERAGE 4.44 3.22 2X AVERAGE 7.05 5.03 3X AVERAGE 11.04 6.14 ID Date Data Source [id number] 12/15/2019 08:04:00 AM EST [facility] ([facility]) Name Value Range Interpretation Code Description Data Jyoti rce(s) Supporting Document(s) Comprehensive Metabo Laboratory test result [facility] ([facility]) COMPREHENSIVE METABOLIC PANEL Sodium 141 meq/L 134-153 [facility] ([facility]) Is patient fasting? N Potassium 4.3 meq/L 3.6-5.0 [facility] ([facility]) Is patient fasting? N Chloride 101 meq/L 98-107 [facility] ([facility]) Is patient fasting? N Co2 29 meq/L 22-30 [facility] ([facility]) Is patient fasting? N Glucose 216 mg/dL 65-110 Above high normal [facility] ([facility]) Is patient fasting? N BUN 24 mg/dL 7-21 Above high normal [facility] ([facility]) Is patient fasting? N Creatinine 1.1 mg/dL 0.7-1.5 [facility] ([facility]) Is patient fasting? N BUN/Creat 22 8-27 [facility] ([facility]) Is patient fasting? N Albumin 4.4 g/dL 3.9-5.0 [facility] ([facility]) Is patient fasting? N Total Protein 7.1 g/dL 6.3-8.2 [facility] Is patient fasting? N Globulin 2.7 GM/DL 2.4-3.2 [facility] ([facility]) Is patient fasting? N A/G Ratio 1.6 0.8-2.0 [facility] ([facility]) Is patient fasting? N Total Bili Laboratory test result 0.2-1.3 [facility] ([facility]) Is patient fasting? N Calcium 9.7 mg/dL 8.4-10.2 [facility] ([facility]) Is patient fasting? N Sgot/Ast 18 U/L 5-40 [facility] ([facility]) Is patient fasting? N Alkaline Phos 61 U/L 38-126 [facility] ([facility]) Is patient fasting? N SGPT/Alt 23 U/L 7-56 [facility] ([facility]) Is patient fasting? N Anion Gap 11.0 mmol/L 8.0-16.0 [facility] ([facility]) Is patient fasting? N Age 64 yrs [facility] ([facility]) Is patient fasting? N Non-Aa GFR Laboratory test result [facility] ([facility]) Is patient fasting? N Afr Amer GFR Laboratory test result [facility] ([facility]) Male GFR Interprentation 20-49 yrs >60 mL/min Normal 50-59 yrs >56 mL/min Normal 60-69 yrs >49 mL/min Normal 70-79yrs >42 mL/min Normal 80 and above >35 mL/min Normal Female GFR Interpretation 20-39 yrs >60 mL/min Normal 40-49 yrs >58 mL/min Normal 50-59 yrs >51 mL/min Normal 60-69 yrs >45 mL/min Normal 70-79 yrs >39 mL/min Normal 80 and above >32 mL/min Normal ID Date Data Source [id number] 12/15/2019 08:04:00 AM EST [facility] ([facility]) Name Value Range Interpretation Code Description Data Jyoti rce(s) Supporting Document(s) CBC W/Automated Diff Laboratory test result [facility] ([facility]) COMPLETE BLOOD COUNT WBC 5.9 10^3/uL 4.2-11.0 [facility] ([facility]) Is patient fasting? N RBC 5.28 10^6/uL 4.50-6.30 [facility] ([facility]) Is patient fasting? N Hemoglobin 16.1 g/dL 14.0-16.0 Above high normal [facility] ([facility]) Is patient fasting? N Hematocrit 49.8 % 41.0-51.0 [facility] ([facility]) Is patient fasting? N MCV 94.3 fL 80.0-94.0 Above high normal [facility] ([facility]) Is patient fasting? N MCH 30.5 pg 27.0-34.0 [facility] ([facility]) Is patient fasting? N MCHC 32.3 g/dL 31.0-36.0 [facility] ([facility]) Is patient fasting? N Platelets 254 10^3/uL 150-450 [facility] ([facility]) Is patient fasting? N RDW 12.8 % 11.5-14.8 [facility] ([facility]) Is patient fasting? N MPV 10.6 fL 7.4-10.4 Above high normal [facility] ([facility]) Is patient fasting? N Neut 48.8 % 37.0-80.0 [facility] ([facility]) Is patient fasting? N Tyrrell 10.0 % 3.0-8.0 Above high normal [facility] ([facility]) Is patient fasting? N Lymph 38.0 % 25.0-40.0 [facility] ([facility]) Is patient fasting? N Eos 2.2 % 0.0-7.0 [facility] ([facility]) Is patient fasting? N Baso 0.7 % 0.0-2.0 [facility] ([facility]) Is patient fasting? N %Ig 0.3 % 0.0-0.0 Above high normal [facility] ([facility]) Is patient fasting? N #Neut 2.87 10^3/uL 2.00-6.90 [facility] ([facility]) Is patient fasting? N %NRBC 0.0 % 0.0-0.0 [facility] ([facility]) Is patient fasting? N #Lymph 2.24 10^3/uL 0.60-3.40 [facility] ([facility]) Is patient fasting? N #Eos 0.13 10^3/uL 0.00-0.70 [facility] ([facility]) Is patient fasting? N #Tyrrell 0.59 10^3/uL 0.00-0.90 [facility] ([facility]) Is patient fasting? N #Baso 0.04 10^3/uL 0.00-0.20 [facility] ([facility]) Is patient fasting? N #NRBC 0.00 10^3/uL 0.00-0.00 [facility] ([facility]) Is patient fasting? N #Ig 0.02 10^3/uL 0.00-0.10 [facility] ([facility]) Is patient fasting? N Manual Diff Laboratory test result [facility] ([facility]) Is patient fasting? N RBC Morph Laboratory test result [facility] ([facility]) Is patient fasting? N ID Date Data Source [id number] 12/15/2019 09:22:00 PM EST [facility] Name Value Range Interpretation Code Description Data Jyoti rce(s) Supporting Document(s) CVE PANEL [facility] LIPID PANEL Cholesterol [Mass/volume] in Serum or Plasma 246 MG/DL 131 - 200 H [facility] Deprecated Triglyceride [Mass/volume] in Serum or Plasma 316 MG/DL 3 5 - 160 H [facility] HDL 40 MG/DL 29 - 86 [facility] Cholesterol in LDL/Cholesterol in HDL [Mass Ratio] in Serum or Plasma 157 mg/dL 65 - 175 [facility] Cholesterol.total/Cholesterol in HDL [Mass Ratio] in Serum o r Plasma 6.2 3.4 - 4.9 H [facility] LDL/HDL 3.93 1.00 - 3.55 H [facility] ital CVE RISK CHOL/HDL LDL/HDLMEN: 1/2 AVERAGE 3.43 1.00 AVERAGE 4.97 3.55 2X AVERAGE 9.55 6.25 3X AVERAGE 23.99 7.99WOMEN: 1/2 AVERAGE 3.27 1.47 AVERAGE 4.44 3.22 2X AVERAGE 7.05 5.03 3X AVERAGE 11.04 6.14 ID Date Data Source [id number] 12/15/2019 09:22:00 PM EST [facility] Name Value Range Interpretation Code Description Data Jyoti rce(s) Supporting Document(s) COMPREHENSIVE METABOLIC PANEL [facility] COMPREHENSIVE METABOLIC PANEL Sodium [Moles/volume] in Serum or Plasma 141 mEq/L 134 - 153 [facility] Potassium [Moles/volume] in Serum or Plasma 4.3 mEq/L 3.6 - 5.0 [facility] Chloride [Moles/volume] in Serum or Plasma 101 mEq/L 98 - 107 [facility] Carbon dioxide, total [Moles/volume] in Serum or Plasma 29 MEQ/L 22 - 30 [facility] Glucose [Mass/volume] in Serum or Plasma 216 MG/DL 65 - 110 H [facility] BUN 24 MG/DL 7 - [address] [facility] al Creatinine [Mass/volume] in Serum or Plasma 1.1 MG/DL 0.7 - 1.5 [facility] BUN/CREAT 22 8 - 27 [facility] al Protein [Mass/volume] in Serum or Plasma 7.1 G/DL 6.3 - 8.2 [facility] Albumin [Mass/volume] in Serum or Plasma 4.4 G/DL 3.9 - 5.0 [facility] Globulin [Mass/volume] in Serum by calculation 2.7 GM/DL 2.4 - 3.2 [facility] A/G RATIO 1.6 0.8 - 2.0 [facility] Calcium [Mass/volume] in Serum or Plasma 9.7 MG/DL 8.4 - 10.2 [facility] Bilirubin.total [Mass/volume] in Serum or Plasma <0.7 MG/DL 0.2 - 1.3 [facility] Alkaline phosphatase [Enzymatic activity/volume] in Serum or Plasma 61 U/L 38 - 126 [facility] Aspartate aminotransferase [Enzymatic activity/volume] in Serum or Plasma 18 U/L 5 - 40 [facility] Alanine aminotransferase [Enzymatic activity/volume] in Seru m or Plasma 23 U/L 7 - 56 [facility] Anion gap 3 in Serum or Plasma 11.0 mmol/L 8.0 - 16.0 [facility] AGE [address] [facility] al NON-AA GFR >60 mL/min [facility] ital AFR AMER GFR >60 mL/min [facility] Male GFR In terprentation 20-49 yrs >60 mL/min Normal 50-59 yrs >56 mL/min Normal 60-69 yrs >49 mL/min Normal 70-79yrs >42 mL/min Normal 80 and above >35 mL/min Normal Female GFR Interpretation 20-39 yrs >60 mL/min Normal 40-49 yrs >58 mL/min Normal 50-59 yrs >51 mL/min Normal 60-69 yrs >45 mL/min Normal 70-79 yrs >39 mL/min Normal 80 and above >32 mL/min Normal ID Date Data Source [id number] 12/15/2019 09:22:00 PM [facility] Name Value Range Interpretation Code Description Data Jyoti rce(s) Supporting Document(s) Thyrotropin [Units/volume] in Serum or Plasma by Detec tion limit <= 0.05 mIU/L 8.11 uIU/mL 0.47 - 5.01 H [facility] ID Date Data Source [id number] 12/15/2019 09:22:00 PM [facility] Name Value Range Interpretation Code Description Data Jyoti rce(s) Supporting Document(s) Magnesium [Mass/volume] in Serum or Plasma 1.9 MG/DL 1.7 - 2.2 [facility] ID Date Data Source [id number] 12/15/2019 09:15:00 PM [facility] Name Value Range Interpretation Code Description Data Jyoti [facility](s) Supporting Document(s) Hemoglobin A1c/Hemoglobin.total in Blood 8.2 % 4.4 - 6.1 H [facility] {A1]{HB] ID Date Data Source [id number] 12/15/2019 09:09:00 PM [facility] Name Value Range Interpretation Code Description Data Jyoti rce(s) Supporting Document(s) CBC W/AUTOMATED DIFF [facility] COMPLETE BLOOD COUNT Leukocytes [#/volume] in Blood by Automated count 5.9 10^3/uL 4.2 - 1 1.0 [facility] Erythrocytes [#/volume] in Blood by Automated count 5.28 10^6/uL 4. 50 - 6.30 [facility] Hemoglobin [Mass/volume] in Blood 16.1 g/dL 14.0 - 16.0 H [facility] Hematocrit [Volume Fraction] of Blood by Automated count 49.8 % 4 1.0 - 51.0 [facility] Erythrocyte mean corpuscular volume [Entitic volume] by Auto mated count 94.3 fL 80.0 - 94.0 H [facility] Erythrocyte mean corpuscular hemoglobin [Entitic mass] by Automated count 30.5 pg 27.0 - 34.0 [facility] Erythrocyte mean corpuscular hemoglobin concentration [Mass/volume] by Automated count 32.3 g/dL 31.0 - 36.0 [facility] Erythrocyte distribution width [Ratio] by Automated count 12.8 % 11.5 - 14.8 [facility] Platelets [#/volume] in Blood by Automated count 254 10^3/uL 150 - 45 0 [facility] Platelet mean volume [Entitic volume] in Blood by Automated count 10.6 fL 7.4 - 10.4 H [facility] Neutrophils/100 leukocytes in Blood by Automated count 48.8 % 37. 0 - 80.0 [facility] Lymphocytes/100 leukocytes in Blood by Manual count 38.0 % 25.0 - 40.0 [facility] Monocytes/100 leukocytes in Blood by Automated count 10.0 % 3.0 - 8.0 H [facility] Eosinophils/100 leukocytes in Blood by Automated count 2.2 % 0.0 - 7.0 [facility] Basophils/100 leukocytes in Blood by Automated count 0.7 % 0.0 - 2.0 [facility] %IG 0.3 % 0.0 - 0.0 H [facility] %NRBC 0.0 % 0.0 - 0.0 [facility] al Neutrophils [#/volume] in Blood by Automated count 2.87 10^3/uL 2.00 - 6.90 [facility] Lymphocytes [#/volume] in Blood by Automated count 2.24 10^3/uL 0.60 - 3.40 [facility] Monocytes [#/volume] in Blood by Automated count 0.59 10^3/uL 0.00 - 0.90 [facility] Eosinophils [#/volume] in Blood by Automated count 0.13 10^3/uL 0.00 - 0.70 [facility] Basophils [#/volume] in Blood by Automated count 0.04 10^3/uL 0.00 - 0.20 [facility] #IG 0.02 10^3/uL 0.00 - 0.10 [facility] #NRBC 0.00 10^3/uL 0.00 - 0.00 [facility] MANUAL DIFF NOT INDICATED [facility] RBC MORPH NOT INDICATED [facility] Procedure Social History Code Duration Value Status Description Data Source(s ) Alcohol intake 10/19/2020 12:00:00 AM EST Current drinker of al cohol (finding) completed Current drinker of alcohol (finding) [facility] Tobacco use and exposure 10/19/2020 12:00:00 AM EST Never used co mpleted Never used [facility] Smoking 10/19/2020 12:00:00 AM EST Never smoker completed Never s vtker [facility] Smoking 10/03/2020 12:00:00 AM EST Never Smoked A Pipe complet ed Never Smoked A Pipe [facility] ([facility]) Vital Signs ID Date Data Source UNK Name Value Range Interpretation Code Description Data Source(s) Body surface area Derived from formula 2.10 m2 2.10 m2 [facility] ([facility]) Body mass index (BMI) [Ratio] 34.0 kg/m2 34.0 k g/m2 [facility] ([facility]) Body height 67 [in_i] 67 [in_i] [facility] ([facility]) 5'7" Body weight 98.601 kg 98.601 kg [facility] ([facility]) Body weight 217.38 [lb_av] 217.38 [lb_av] [facility] T ([facility]) Oxygen saturation in Arterial blood by Pulse oximetry 96 % 96 % [facility] ([facility]) Respiratory rate 18 /min 18 /min [facility] ( [facility]) Body temperature 96.6 [degF] 96.6 [degF] [facility] ([facility]) Heart rate 78 /min 78 /min [facility] ([facility]) Diastolic blood pressure 68 mm[Hg] 68 mm[Hg] [facility] ([facility]) Systolic blood pressure 112 mm[Hg] 112 mm[Hg] M EDENT ([facility]) Body height 67 [in_i] 67 [in_i] [facility] ([facility]) 5'7" Body surface area Derived from formula 2.07 m2 2.07 m2 [facility] ([facility]) Body mass index (BMI) [Ratio] 33.0 kg/m2 33.0 k g/m2 [facility] ([facility]) Body height 67 [in_i] 67 [in_i] [facility] ([facility]) 5'7" Body weight 95.710 kg 95.710 kg [facility] ([facility]) Body weight 211.00 [lb_av] 211.00 [lb_av] [facility] T ([facility]) Oxygen saturation in Arterial blood by Pulse oximetry 97 % 97 % [facility] ([facility]) Respiratory rate 18 /min 18 /min [facility] ( [facility]) Body temperature 98.1 [degF] 98.1 [degF] [facility] ([facility]) Heart rate 72 /min 72 /min [facility] ([facility]) Diastolic blood pressure 60 mm[Hg] 60 mm[Hg] [facility] ([facility]) Systolic blood pressure 108 mm[Hg] 108 mm[Hg] [facility] ([facility]) Body surface area 2.07 m2 2.07 m2 [facility] ([facility]) Body surface area Derived from formula 2.14 m2 2.14 m2 [facility] ([facility]) Body mass index (BMI) [Ratio] 35.7 kg/m2 35.7 k g/m2 [facility] ([facility]) Body height 67 [in_i] 67 [in_i] [facility] ([facility]) 5'7" Body weight 103.421 kg 103.421 kg [facility] ([facility]) Body weight 228.00 [lb_av] 228.00 [lb_av] [facility] T ([facility]) Oxygen saturation in Arterial blood by Pulse oximetry 95 % 95 % [facility] ([facility]) Respiratory rate 18 /min 18 /min [facility] ( [facility]) Body temperature 97.3 [degF] 97.3 [degF] [facility] ([facility]) Heart rate 70 /min 70 /min [facility] ([facility]) Diastolic blood pressure 74 mm[Hg] 74 mm[Hg] [facility] ([facility]) Systolic blood pressure 118 mm[Hg] 118 mm[Hg] [facility] ([facility]) Body surface area 2.14 m2 2.14 m2 [facility] ([facility]) Body surface area 2.17 m2 2.17 m2 [facility] ([facility]) Body mass index (BMI) [Ratio] 36.8 kg/m2 36.8 k g/m2 [facility] ([facility]) Body height 67 [in_i] 67 [in_i] [facility] ([facility]) 5'7" Body weight 106.596 kg 106.596 kg [facility] ([facility]) Body weight 235.00 [lb_av] 235.00 [lb_av] [facility] T ([facility]) Oxygen saturation in Arterial blood by Pulse oximetry 94 % 94 % [facility] ([facility]) Respiratory rate 18 /min 18 /min [facility] ( [facility]) Body temperature 98.1 [degF] 98.1 [degF] [facility] ([facility]) Heart rate 88 /min 88 /min [facility] ([facility]) Diastolic blood pressure 90 mm[Hg] 90 mm[Hg] [facility] ([facility]) Systolic blood pressure 142 mm[Hg] 142 mm[Hg] M [facility] ([facility]) ID Date Data Source [id number] 10/25/2020 09:01:56 AM [facility] Name Value Range Interpretation Code Description Data Source(s) WEIGHT RECORDED 215 lb 215 lb [facility] Body height Measured 68 in 68 in [facility] Patient Treatment Plan of Care Planned Activity Planned Date Details Description Data Source (s) Ibuprofen 600 MG Oral Tablet 10/11/2020 12:00:00 AM [facility] Gemfibrozil 600 MG Oral Tablet 09/18/2020 12:00:00 AM [facility] Levothyroxine Sodium 0.088 MG Oral Tablet 09/15/2020 12:00:00 AM [facility] Doxazosin 2 MG Oral Tablet 09/14/2020 12:00:00 AM [facility] 24 HR Metformin hydrochloride 500 MG Extended Release Oral Tablet 09/13/2020 12:00:[address] [facility] ospital Sertraline 50 MG Oral Tablet 05/10/2019 12:00:00 AM [facility] Amitriptyline Hydrochloride 10 MG Oral Tablet 12/24/2018 12:00:00 A M [facility] Lisinopril 40 MG Oral Tablet 09/30/2018 12:00:00 AM [facility] Gentamicin Sulfate (SNF) 3 MG/ML Ophthalmic Solution [facility] Jakfccuixqy-Xaqokqcf-Zammthrzw 1-0.5-0.075 % SOLN [facility] Levothyroxine Sodium 0.05 MG Oral Tablet [facility] Melatonin 5 MG Oral Capsule [facility]
[2020-12-21] MEDS ORDERED: fentaNYL 100 MCG/2 ML INJECTION (J3010) As Ordered ONE (07:40)
[2020-12-21] MEDS ORDERED: MIDAZOLAM INJ 2MG/2ML VIAL (J2250 PER 1MG) As Ordered ONE (07:40)
[2020-12-21 09:30] VITALS: BP 115/74
--- NOTE | 2020-12-22 09:49 | RO ---
OPERATIVE NOTE DATE OF OPERATION: 12/21/2020 PREOPERATIVE DIAGNOSIS: 1. Visually significant nuclear sclerotic cataract, left eye. POSTOPERATIVE DIAGNOSIS: 1. Visually significant nuclear sclerotic cataract, left eye. PROCEDURE: 1. Cataract extraction with use of phacoemulsification, and placement of intraocular lens, [id number], 16.0 D, left eye. SURGEON: Christian Aleman DO ANESTHESIA: Local (Omidria with MAC) COMPLICATIONS: None POSTOPERATIVE CONDITION: Stable INDICATIONS FOR SURGERY: 1. Blurred vision affecting patient's activities of daily living. DESCRIPTION OF PROCEDURE: The patient was seen in the preoperative area and properly identified. The correct operative eye was identified and marked. The patient received topical anesthetic, antibiotics, and topical dilating drops. The patient was then transferred to the operating room. The correct side was re-identified and a time-out was performed. The eye was prepped and draped in a sterile fashion. The eyelids were isolated with Tegaderm tape and the lids were held open with an adjustable speculum. A 1.0mm paracentesis incision was made. Omidria was then injected into the anterior chamber. Viscoelastic was then injected into the anterior chamber through the paracentesis. Using a 2.4mm sharp-tipped keratome, the anterior chamber was entered via a temporal clear cornea incision. A continuous curvilinear capsulorrhexis was created with Utrata forceps. Hydrodissection was performed with BSS on a blunt cannula until the nucleus was able to rotate freely. The crystalline lens was phacoemulsified and aspirated. Irrigation/aspiration was used to remove the cortical material Cohesive viscoelastic was placed into the capsular bag to deepen it. The implant was placed into the capsular bag and allowed to unfold. Placement was confirmed by visualizing the anterior capsulorrhexis. Irrigation/aspiration was used to remove the viscoelastic. The clear corneal incision was hydrated with BSS on a blunt cannula. The lens was well positioned. Intracameral antibiotic was injected into the anterior chamber. The incisions were then tested for leaks and found to be negative. The eye was then palpated for appropriate pressure and adjusted accordingly with BSS. The eyelid speculum was then carefully removed. A shield was placed over the eye. The patient tolerated the procedure well and was discharge to the recovery unit in a stable condition. SHANNA
== END 2020-12-21 10:14 | disposition home or self-care (01) ==
LOC: M SDC 07:01
PROVIDERS: ATTEND Ophthalmology
DX: H25.12 Age-related nuclear cataract, left eye (principal); I10 Essential (primary) hypertension; E11.9 Type 2 diabetes mellitus without complications; E78.5 Hyperlipidemia, unspecified; E03.9 Hypothyroidism, unspecified; M12.9 Arthropathy, unspecified; Z79.899 Other long term (current) drug therapy; Z85.038 Personal history of other malignant neoplasm of large intestine; Z87.820 Personal history of traumatic brain injury
CPT/HCPCS: 66984; J1097; J2250; J3010; V2632

== ENCOUNTER → 2021-07-26 | Outpatient (CLI) | payer MEDICARE ==
[~2021-07-26] MED LIST changes: -AMIT10TA PO; +AMIT10TA7 PO; -BSS IRR 500ML/OMIDRIA 4ML IRR BAG (OR ONLY) As Ordered ONE; -CEFUROXIME 1MG/0.1ML INTRACAMERAL INJ As Ordered ONE; -DUOVISC (0.50ML VISCOAT/0.55ML PROVISC) OPHTH KIT As Ordered ONE; -OFLOXACIN 0.3 % (OCUFLOX) OPTH SOL 5ML OS ONE; -PHENYLEPHRINE 2.5% OPHTH SOL 2ML OS ONE; -POVIDONE-IODINE 5% OPHTH PREP SOL 30ML As Ordered ONE; -PROPARACAINE 0.5% OPHTH SOL 15ML OS ONE; -TROPICAMIDE 1% OPHTH SOLN 2ML OS ONE
== END ==
LOC: M LABSMTC 09:43
PROVIDERS: ATTEND Anesthesiology
DX: Z01.812 Encounter for preprocedural laboratory examination (principal); Z20.822 Contact with and (suspected) exposure to COVID-19

== ENCOUNTER 2021-07-31 08:06 | Day surgery (SDC) | payer MEDICARE ==
[~2021-07-31] VITALS: Ht 170.2 cm; Wt 86.4 kg
[~2021-07-31 08:06] MED LIST changes: +NS 1,000 ML IV ONE
[2021-07-31] MEDS ORDERED: propofoL 200 MG/20 ML VIAL As Ordered ONE (09:32)
[2021-07-31] MEDS ORDERED: LIDOCAINE 2% 100MG/5ML SDV (FOR ANES.) As Ordered ONE (09:32)
--- NOTE | 2021-07-31 09:35 | ROOR ---
Patient Name: Adrián Coombs Procedure Date: 07/31/2021 9:11 AM Date of : 1955 Age: 66 Room: [facility] Gender: Male Note Status: Finalized Procedure: Colonoscopy Indications: High risk colon cancer surveillance: Personal history of colon cancer Providers: Rod Machado MD Referring MD: 1. NO/Unknown PCP 1. NO/Unknown PCP, Admin., Rod Machado MD Requesting Provider: Medicines: Monitored Anesthesia Care Complications: No immediate complications. Procedure: Pre-Anesthesia Assessment: - The heart rate, respiratory rate, oxygen saturations, blood pressure, adequacy of pulmonary ventilation, and response to care were monitored throughout the procedure. The Colonoscope was introduced through the anus and advanced to the terminal ileum, with identification of the appendiceal orifice and IC valve. The colonoscopy was performed without difficulty. The patient tolerated the procedure well. The quality of the bowel preparation was adequate. Findings: The perianal and digital rectal examinations were normal. A 6 mm polyp was found in the 80 cm from verge (~splenic flexure). The polyp was semi-sessile. The polyp was removed with a cold snare. Resection and retrieval were complete. There was evidence of a prior end-to-side colo-colonic anastomosis in the mid sigmoid colon. This was patent and was characterized by healthy appearing mucosa. Multiple small and large-mouthed diverticula were found in the descending colon. The exam was otherwise without abnormality on direct and retroflexion views. Impression: - One 6 mm polyp at 80 cm from verge/the splenic flexure, removed with a cold snare. Resected and retrieved. - Patent end-to-side colo-colonic anastomosis at 22 cm from verge, characterized by healthy appearing mucosa. - Diverticulosis in the descending colon. - The examination was otherwise normal on direct and retroflexion views. Recommendation: - Repeat colonoscopy in 5 years for surveillance. (3 yrs if villous component) - Await pathology results. - Telephone endoscopist for pathology results in 2 weeks. Procedure Code(s): --- Professional --- 27263, Colonoscopy, flexible; with removal of tumor(s), polyp(s), or other lesion(s) by snare technique Diagnosis Code(s): --- Professional --- K57.30, Diverticulosis of large intestine without perforation or abscess without bleeding Z98.0, Intestinal bypass and anastomosis status K63.5, Polyp of colon Z85.038, Personal history of other malignant neoplasm of large intestine CPT copyright 2019 [employer]. All rights reserved. The codes documented in this report are preliminary and upon switch repairer review may be revised to meet current compliance requirements. Rod Machado MD Rod Machado MD 07/31/2021 9:35:20 AM Electronically signed by Rod Machado MD Number of Addenda: 0 Note Initiated On: 07/31/2021 9:11 AM Estimated Blood Loss: Estimated blood loss: none.
[2021-07-31 09:59] VITALS: BP 109/71
== END 2021-07-31 10:01 | disposition home or self-care (01) ==
LOC: M OPP 08:06
PROVIDERS: ATTEND Internal Medicine Gastroenterology
DX: Z12.11 Encounter for screening for malignant neoplasm of colon (principal); Z85.038 Personal history of other malignant neoplasm of large intestine; Z80.0 Family history of malignant neoplasm of digestive organs; D12.3 Benign neoplasm of transverse colon; K57.30 Diverticulosis of large intestine without perforation or abscess without bleeding; Z98.0 Intestinal bypass and anastomosis status; Z79.899 Other long term (current) drug therapy

== ENCOUNTER → 2025-09-12 | Outpatient (CLI) | payer MEDICARE ==
[~2025-09-12] MED LIST changes: +AMIT10TA11 PO; -AMIT10TA7 PO; -D31000TA2 PO; -DOXA2TAB3 PO; +DOXA2TAB61 PO; +LISI40TA10 PO; -LISI40TA4 PO; -NS 1,000 ML IV ONE; +ROSU5TAB49; -ROSU5TAB5; +SIMV-253 PO; +VITA100093 PO; -ZOCO20TA PO
== END ==
LOC: M PLALAB 14:30
PROVIDERS: ATTEND Specialist
DX: R97.20 Elevated prostate specific antigen [PSA] (principal)